=== PATIENT | female | born 1995 | race Caucasian/White ===

== ENCOUNTER 2019-11-22 06:06 | Day surgery (SDC) | payer OTHER, SELFPAY ==
[2019-11-22] VITALS (11 sets, daily range): BP systolic 110–147; BP diastolic 62–82; PULSE 59–102; RESP 11–23; TEMP 36.7–37.3; O2SAT 95–100
--- NOTE | ~2019-11-22 | CT_ITS ---
EXAMINATION: CT abdomen pelvis w con DATE: 11/22/2019 06:57 INDICATION: Right lower quadrant abdominal pain. Nausea. Diarrhea. TECHNIQUE: Computed tomography (CT) of the abdomen and pelvis was performed with 100 mL Omnipaque 350 intravenous contrast. Automated exposure control and iterative reconstruction technique were employe d. The dose-length product was 376.77 mGy-cm. COMPARISON: None. FINDINGS: The visualized portions of the lung bases are clear without pneumonia or pleural effusion. The heart size is normal. No pericardial effusion. The liver, gallbladder, spleen, pancreas, adrenal glands, and kidneys are normal. There is an intrauterine device in expected position. There is an duc endicolith in the appendix, which is fluid-filled and dilated to 9 mm, consistent with acute appendic itis. There are no pathologically enlarged lymph nodes. There is trace pelvic ascites. There are peripheral edp equipment operator aydin bilateral L5 pars defects. IMPRESSION: 1. Acute appendicitis. Reviewed, dictated and finalized at location A. IMPRESSION: 1. Acute appendicitis.
--- NOTE | 2019-11-22 06:26 | ED.ABDPAIN ---
HPI - Abdominal Pain General Chief Complaint: Abdominal Pain <Drew Brady MD - Last Filed: 11/22/19 19:15> Stated Complaint: abd pain <Drew Brady MD - Last Filed: 11/22/19 19:15> Time Seen by Provider: 11/22/19 06:26 <Drew Brady MD - Last Filed: 11/22/19 19:15> History of Present Illness HPI narrative: Severe RLQ pain since about 4 AM. Associated with nausea. Additionally reports feeling constipated, this is despite having a bowel movement this morning. The pain is worse with extending at the waist. She has never had this pain before. No prior surgeries <Drew Brady MD - Last Filed: 11/22/19 19:15> Related Data Home Medications: Home Medications Medication Instructions Recorded Confirmed No Home Medications 11/22/19 11/22/19 <Drew Brady MD - Last Filed: 11/22/19 19:15> Allergies/Adverse Reactions: Allergies Allergy/AdvReac Type Severity Reaction Status Date / Time No Known Allergies Allergy Verified 11/22/19 09:16 <Drew Brady MD - Last Filed: 11/22/19 19:15> Review of Systems Review of Systems: All systems reviewed & are unremarkable except as noted in HPI and below <Drew Brady MD - Last Filed: 11/22/19 19:15> Constitutional: Constitutional: Denies fever(s) <Drew Brady MD - Last Filed: 11/22/19 19:15> Cardiovascular: Cardiovascular: Denies chest pain <Drew Brady MD - Last Filed: 11/22/19 19:15> Respiratory: Respiratory: Denies dyspnea <Drew Brady MD - Last Filed: 11/22/19 19:15> Gastrointestinal: Gastrointestinal: Reports abdominal pain, Reports constipation, Reports diarrhea and Denies nausea <Drew Brady MD - Last Filed: 11/22/19 19:15> Neurologic: Denies dizziness <Drew Brady MD - Last Filed: 11/22/19 19:15> [facility] Past Medical History Medical History: Medical History No significant past medical history <Drew Brady MD - Last Filed: 11/22/19 19:15> Surgical History Surgical History: Surgical History No pertinent past surgical history <Drew Brady MD - Last Filed: 11/22/19 19:15> Family History Family History: Family History Mother Breast cancer Thyroid disease Sibling Thyroid disease <Drew Brady MD - Last Filed: 11/22/19 19:15> Social History Social History: Social History Social History: Designates her mother, Ca Parker, as her medical decision maker. Smoking status: Current every day smoker Tobacco type: e-cigarettes/vaping Alcohol intake: current Alcohol use details: Occasional, social alcohol use. 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 Gender identity (if verbalized by the patient): Female <Drew Brady MD - Last Filed: 11/22/19 19:15> Exam Const: General: healthy appearing, no acute distress and alert <Drew Brady MD - Last Filed: 11/22/19 19:15> Orientation/consciousness: patient oriented x3 <Drew Brady MD - Last Filed: 11/22/19 19:15> Other: mild distress. Tearful <Drew Brady MD - Last Filed: 11/22/19 19:15> HENMT: Head: normal to inspection <Drew Brady MD - Last Filed: 11/22/19 19:15> Neck: Neck: normal visual inspection and no lymphadenopathy <Drew Brady MD - Last Filed: 11/22/19 19:15> Chest: Chest palpation & inspection: no tenderness <Drew Brady MD - Last Filed: 11/22/19 19:15
[2019-11-22 06:33] LABS: Basophils Percent Auto 0.4 % (0.2-1.2); Eosinophils Absolute Auto 0.1 K/mm3 (0-0.3); Eosinophils Percent Auto 0.6 % (0-4.4); Hematocrit 41.7 % (37.0-47.0); Hemoglobin 14.5 g/dL (12.0-15.0); Immature Granulocyte Absolute 0.04 K/mm3 (0.00-0.031); Immature Granulocyte Percent A 0.4 % (0-0.5); Lymphocytes Absolute Auto 1.45 K/mm3 (0.9-3.2); Lymphocytes Percent Auto 12.7 % (18.3-44.2); Mean Corpuscular HGB Conc 34.8 g/dl (32-36); Monocytes Absolute Auto 0.9 K/mm3 (0.1-0.6); Monocytes Percent Auto 7.4 % (2.6-8.5); Neutrophils Percent Auto 78.5 % (45.5-73.1); Platelet Count Result 125 k/mm3 (150-375); Red Blood Count 4.39 M/mm3 (4.2-5.4); Red Cell Distribution Width 11.9 % (11.5-14.5); White Blood Count 11.4 K/mm3 (4.5-10.0)
[2019-11-22] MEDS: MORPHINE SULFATE 2 MG/ML INJ IV PUSH (06:37)
[2019-11-22] MEDS: ONDANSETRON INJ 4 MG/2 ML VIAL IV PUSH (06:38)
[2019-11-22 06:46] LABS: Alanine Aminotransferase 17 U/L (4-35); Albumin Level 4.7 g/dL (3.5-5.1); Alkaline Phosphatase 81 U/L (38-126); Aspartate Amino Transferase 39 U/L (14-36); Bilirubin,Total 0.6 mg/dL (0.2-1.3); Blood Urea Nitrogen 13 mg/dL (7-17); Calcium 9.3 mg/dL (8.4-10.2); Carbon Dioxide 22 mmol/L (22-30); Chloride 105 mmol/L (98-107); Estimated CRCL calculation 108 ml/min; Estimated Glomerular Filt Rate > 60; Glucose 112 mg/dL (65-105); Lipase 132 U/L (23-300); Potassium 4.3 mmol/L (3.4-5.0); Sodium 136 mmol/L (137-145)
[2019-11-22] MEDS: MORPHINE SULFATE 4 MG/ML INJ IV PUSH (07:12)
[2019-11-22 08:24] LABS: Add Urine Microscopic? YES; Appearance Urine Clear (Clear); Bilirubin Urine Negative (Negative); Blood Urine Negative (Negative); Color Urine Straw (Yellow); Glucose Urine UA Negative (Negative); Ketones Urine Trace mg/dL (Negative); Leukocyte Esterase Ur Negative LEU/UL (Negative); Nitrate Urine Negative (Negative); Protein Urine Negative (Negative); Squamous Epithelial Cell Urine Moderate /hpf (Few); Urobilinogen Urine Negative mg/dL (<2.0); WBC Urine 0-3 /hpf
[2019-11-22 08:26] LABS: Specific Grav Ur > 1.060 (1.001-1.035)
--- NOTE | 2019-11-22 08:34 | PM.IMHP ---
H&P: HPI History of Present Illness Chief complaint: abd pain Narrative: Mercedez Breen is a 24 year old female, who is otherwise healthy, the presented to the emergency department for evaluation of lower abdominal pain. She reports having a sudden onset of lower abdominal pain around 4:00 a.m. this morning. It was difficult to get comfortable in bed and she had gotten up to have a bowel movement, which was loose, without any relief in her pain. Throughout the morning, her pain continued to worsen with no alleviating factors. The pain would worsen when lying flat, standing, or walking the stairs. She also reports associated nausea, but no vomiting. Denies fever or chills. Due to the unrelenting abdominal pain, she presented to the emergency department for further evaluation. CT scan of the abdomen and pelvis showed evidence of acute appendicitis. Labs revealed a white blood cell count of 11,400. Our service was contacted by the ED physician for surgical evaluation of the possible acute appendicitis. The patient is now being seen in the emergency department. She reports her abdominal pain has now localized to the right lower quadrant since being in the ER. She also reports that the pain improved with pain medication, but is now worsening again. Denies any nausea at this time. No other complaints at this time. No previous abdominal surgeries. Last time she had any oral intake was last night before bed. Review of Systems Constitutional: Constitutional: Reports as per HPI, Denies chills, Denies excessive sweating, Denies fatigue, Denies fever(s), Denies headache(s) and Denies weakness Eyes: Eyes: Denies change in vision and Denies loss of vision ENT: Reports Normal hearing present, Denies dizziness, Denies headache(s), Denies sinus pain, Denies sinus pressure and Denies sore throat Cardiovascular: Cardiovascular: Denies chest pain, Denies syncope, Denies leg edema, Denies lightheadedness, Denies radiating jaw, neck or arm pain and Denies dyspnea Respiratory: Respiratory: Denies cough, Denies dyspnea and Denies wheezing Gastrointestinal: Gastrointestinal: Reports as per HPI, Reports no additional gastrointestinal complaints, Reports abdominal pain (RLQ), Denies bloating, Denies hematochezia, Denies tenesmus, Denies constipation, Denies dysphagia, Reports loose stools, Reports nausea and Denies vomiting Genitourinary: Genitourinary: Reports no additional female genitourinary complaints, Denies hematuria and Denies dysuria Musculoskeletal: Musculoskeletal: Denies deformity, Denies joint swelling, Denies radiating pain into limb and Denies tingling Integumentary/Breasts: Skin/Breast: Denies pruritus, Denies wounds and Denies jaundice Neurologic: Reports Normal hearing present, Denies confusion, Denies dizziness, Denies syncope, Denies headache(s), Denies loss of vision, Denies tingling, Denies tremor(s) and Denies weakness Psychiatric: Psychiatric: Denies anxiety, Denies confusion and Denies depression Endocrine: Endocrine: Denies cold intolerance, Denies excessive sweating, Denies fatigue and Denies heat intolerance Hematologic/Lymphatic: Hematologic/Lymphatic: Denies easy bleeding and Denies easy bruising Allergic/Immunologic: Allergic/Immunologic: Denies wheezing PMFSH Past Medical History Medical History No significant past medical history Surgical History Surgical History No pertinent past surgical history Family History Family History Mother Breast cancer Thyroid disease Sibling Thyroid disease Social History Social History Social History: Designates her mother, Ca Parker, as her medical decision maker. Smoking status: Current every day smoker Tobacco type: e-cigarettes/vaping Alcohol in
--- NOTE | 2019-11-22 08:58 | WPDANESEPPF ---
Anes - Initial Pre Proc Eval Procedure: Operation Date: 11/22/19 10:00 Proposed Procedures p Laparoscopic Appendectomy - Lazaro Walker MD Date/Time: 11/22/19 08:58 Surgeon: Lazaro Walker MD Pre Op Diagnosis: abd pain Patient Data Age: 24 Gender: F Height: 5 ft 4 in Weight: 59 kg Last Vital Signs Temp 36.7 C 11/22/19 06:09 Pulse 66 11/22/19 08:41 Resp 18 11/22/19 08:41 BP 113/76 11/22/19 08:41 Pulse Ox 100 11/22/19 08:41 Allergies Allergy/AdvReac Type Severity Reaction Status Date / Time No Known Allergies Allergy Verified 11/22/19 06:25 Home Medications Medication Instructions Recorded Confirmed Type No Home Medications 11/22/19 11/22/19 History Laboratory Tests 11/22/19 11/22/19 11/22/19 06:26 06:26 08:03 WBC 11.4 K/mm3 H K/mm3 (4.5-10.0) RBC 4.39 M/mm3 M/mm3 (4.2-5.4) Hgb 14.5 g/dL g/dL (12.0-15.0) Hct 41.7 % % (37.0-47.0) MCV 95.0 fl fl (80-100) MCH 33.0 pg pg (26-34) MCHC 34.8 g/dl g/dl (32-36) RDW 11.9 % % (11.5-14.5) Plt Count 125 k/mm3 L k/mm3 (150-375) MPV 13.0 fl H fl (7.4-10.4) Immature Gran % (Auto) 0.4 % % (0-0.5) Neut % (Auto) 78.5 % H % (45.5-73.1) Lymph % (Auto) 12.7 % L % (18.3-44.2) [place] % (Auto) 7.4 % % (2.6-8.5) Eos % (Auto) 0.6 % % (0-4.4) Baso % (Auto) 0.4 % % (0.2-1.2) Lymph # (Auto) 1.45 K/mm3 K/mm3 (0.9-3.2) [place] # (Auto) 0.9 K/mm3 H K/mm3 (0.1-0.6) Eos # (Auto) 0.1 K/mm3 K/mm3 (0-0.3) Baso # (Auto) 0.0 K/mm3 K/mm3 (0.0-0.1) Abs Immat Gran (auto) 0.04 K/mm3 H K/mm3 (0.00-0.031) Absolute Neuts (auto) 9.0 K/mm3 H K/mm3 (1.3-6.7) Absolute Nucleated RBC 0.0 K/mm3 K/mm3 (0.0-0.012) Nucleated RBC % 0.0 % % (0.0-0.2) Sodium 136 mmol/L L mmol/L (137-145) Potassium 4.3 mmol/L mmol/L (3.4-5.0) Chloride 105 mmol/L mmol/L (98-107) Carbon Dioxide 22 mmol/L mmol/L (22-30) BUN 13 mg/dL mg/dL (7-17) Creatinine 0.60 mg/dL L mg/dL (0.7-1.0) Estim Creat Clear Calc 108 ml/min ml/min Estimated GFR > 60 (59 - ) Glucose 112 mg/dL H mg/dL (65-105) Calcium 9.3 mg/dL mg/dL (8.4-10.2) Total Bilirubin 0.6 mg/dL mg/dL (0.2-1.3) AST 39 U/L H U/L (14-36) ALT 17 U/L U/L (4-35) Alkaline Phosphatase 81 U/L U/L (38-126) Total Protein 8.0 g/dL g/dL (6.3-8.2) Albumin 4.7 g/dL g/dL (3.5-5.1) Lipase 132 U/L U/L (23-300) Urine Color Straw (Yellow) Urine Appearance Clear (Clear) Urine pH 7.0 (5.0-9.0) Ur Specific [place] > 1.060 H (1.001-1.035) Urine Protein Negative mg/dL mg/dL (Negative) Urine Glucose (UA) Negative mg/dL mg/dL (Negative) Urine Ketones Trace mg/dL mg/dL (Negative) Ur Blood (Man) Negative (Negative) Urine Nitrate Negative (Negative) Urine Bilirubin Negative (Negative) Urine Urobilinogen Negative mg/dL mg/dL (<2.0) Leukocyte Esterase Rfl Negative KEARA/UL KEARA/UL (Negative) Urine RBC 3-5 /hpf H /hpf (0-2) Urine WBC 0-3 /hpf /hpf Ur Squamous Epith Cells Moderate /hpf H /hpf (Few) Patient hx anesthesia problems: none Family hx anesthesia problems: none PMFSH Past Medical History Medical History No significant past medical history Surgical History Surgical History No pertinent past surgical history Family History Family History Mo
[2019-11-22] MEDS: LACTATED RINGERS 1,000 ML 30 ML IV CONT ×2 (09:00→10:46)
--- NOTE | 2019-11-22 09:42 | PM.PNGS ---
Progress Note: A&P Assessment and Plan (1) Acute appendicitis: Qualifiers: Acute appendicitis type: with localized peritonitis Appendicitis abscess presence: without abscess Appendicitis gangrene presence: without gangrene Appendicitis perforation presence: without perforation Qualified Code(s): K35.30 - Acute appendicitis with localized peritonitis, without perforation or gangrene Code(s): K35.80 - Unspecified acute appendicitis Status: Acute Assessment and Plan: Will proceed with laparoscopic appendectomy today. Procedure discussed thoroughly. All questions answered. She agrees to go ahead. Subjective Subjective Date/Time Seen: 11/22/19 09:42 Healthy young woman with RLQ abdominal pain and tenderness. WBC is over 11,000. CT c/w acute appendicitis with appendicolith. Review of Systems Constitutional: Constitutional: Denies chills and Denies fever(s) Cardiovascular: Cardiovascular: Denies chest pain, Denies diaphoresis, Denies dyspnea and Denies paroxysmal nocturnal dyspnea Respiratory: Respiratory: Denies chest congestion, Denies cough and Denies dyspnea Integumentary/Breasts: Skin/Breast: Denies lesions and Denies rash Exam Const: General: comfortable and no acute distress; No confusion Orientation/consciousness: patient oriented x3 and No confusion GI: Inspection: non-distended GI Palp: Yes Soft to palpation, Yes Tenderness to palpation present (GI) (tender RLQ with guarding), No Guarding due to palpation present (GI) and No Rebound tenderness present Auscultation: normal bowel sounds Neuro: General: patient oriented x3, no focal motor deficits and No confusion Extrem: General: no calf tenderness and no edema Psych: Affect: normal affect Insight: Good insight present (Psych) Judgement: Good judgement present (Psych) Objective Data Vital Signs Vital Signs: Vital Signs - 24 hr 11/22/19 06:09 11/22/19 08:07 11/22/19 08:41 Temperature 36.7 C Pulse Rate 73 66 66 Respiratory Rate 19 17 18 Blood Pressure 127/72 115/77 113/76 Pulse Oximetry 100 97 100 11/22/19 08:54 Temperature 37.3 C Pulse Rate 72 Respiratory Rate 20 Blood Pressure 127/63 Pulse Oximetry 100 Intake/Output Intake/Output: Intake & Output 11/19/19 11/20/19 11/21/19 11/22/19 23:59 23:59 23:59 23:59 Intake Total 150 Balance 150 Meds/Results Medications: Active Medications Generic Name Dose Route Start Last Admin Trade Name Freq PRN Reason Stop Dose Admin Fentanyl Citrate 2 mcg 11/22/19 08:59 Sublimaze IV PUSH Q2M PRN Pain Sodium Chloride 1,000 mls @ 150 mls/hr 11/22/19 07:23 Normal Saline Iv IV CONT 11/22/19 14:02 .Q6H40M STA Lactated Ringer's 1,000 mls @ 30 mls/hr 11/22/19 08:10 11/22/19 09:00 Lr - Lactated Ringers Iv IV CONT 30 mls/hr .Q24H CECI Administration Lactated Ringer's 1,000 mls @ 30 mls/hr 11/22/19 09:00 Lr - Lactated Ringers Iv IV CONT .Q24H CECI Ondansetron HCl 4 mg 11/22/19 08:59 Zofran Inj IV PUSH ONCE PRN Nausea Oxycodone HCl 5 mg 11/22/19 08:59 Roxicodone Ir Tablet PO ONCE PRN Pain Radiology Results: ITS Impressions Abdomen/Pelvis CT 11/22/19 07:00 IMPRESSION: 1. Acute appendicitis. Labs Labs: Laboratory Results - last 24 hr 11/22/19 11/22/19 11/22/19 06:26 06:26 08:03 WBC 11.4 H RBC 4.39 Hgb 14.5 Hct 41.7 MCV 95.0 MCH 33.0 MCHC 34.8 RDW 11.9 Plt Count 125 L MPV 13.0 H Immature Gran % (Auto) 0.4 Neut % (Auto) 78.5 H Lymph % (Auto) 12.7 L [place] % (Auto) 7.4 Eos % (Auto) 0.6 Baso % (Auto) 0.4 Lymph # (Auto) 1.45 [place] # (Auto) 0.9 H Eos # (Auto) 0.1 Baso # (Auto) 0.0 Abs Immat Gran (auto) 0.04 H Absolute Neuts (auto) 9.0 H Absolute Nucleated RBC 0.0 Nucleated RBC % 0.0 Sodium 136 L Potassium 4.3 Chloride 105 Carbon Dioxide 22 BUN 13 Creatinine 0.6
[2019-11-22] MEDS: BUPIVACAINE/EPINEPHRINE 0.5% 30 ML VIAL 20 ML INFILTRATE (10:26)
--- NOTE | 2019-11-22 11:03 | PM.SD ---
Same Day Admit/Disch: HPI History of Present Illness Chief complaint: abd pain Narrative: Mercedez Breen is a 24 year old female with appendicitis. See history and physical exam. See operative note. [facility] Past Medical History Medical History No significant past medical history Surgical History Surgical History No pertinent past surgical history Family History Family History Mother Breast cancer Thyroid disease Sibling Thyroid disease Social History Social History Social History: Designates her mother, Ca Parker, as her medical decision maker. Smoking status: Current every day smoker Tobacco type: e-cigarettes/vaping Alcohol intake: current Alcohol use details: Occasional, social alcohol use. 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 Gender identity (if verbalized by the patient): Female Same Day Admit/Disch: Med Pre-admit Medications Home Medications Medication Instructions Recorded Confirmed Type No Home Medications 11/22/19 11/22/19 History hydrocodone-acetaminophen 1 - 2 tablet PO Q6H PRN #7 tablet 11/22/19 Rx ketorolac 10 mg PO Q6H 4 Days #16 tablet 11/22/19 Rx DS: Data Data Completed and Pending Pending studies at discharge: Pending at discharge 11/22/19 10:16 Surgical [PTH] Routine Labs on day of discharge: Labs from last 24 hours 11/22/19 11/22/19 11/22/19 08:03 06:26 06:26 WBC 11.4 H RBC 4.39 Hgb 14.5 Hct 41.7 MCV 95.0 MCH 33.0 MCHC 34.8 RDW 11.9 Plt Count 125 L MPV 13.0 H Immature Gran % (Auto) 0.4 Neut % (Auto) 78.5 H Lymph % (Auto) 12.7 L [place] % (Auto) 7.4 Eos % (Auto) 0.6 Baso % (Auto) 0.4 Lymph # (Auto) 1.45 [place] # (Auto) 0.9 H Eos # (Auto) 0.1 Baso # (Auto) 0.0 Abs Immat Gran (auto) 0.04 H Absolute Neuts (auto) 9.0 H Absolute Nucleated RBC 0.0 Nucleated RBC % 0.0 Sodium 136 L Potassium 4.3 Chloride 105 Carbon Dioxide 22 BUN 13 Creatinine 0.60 L Estim Creat Clear Calc 108 Estimated GFR > 60 Glucose 112 H Calcium 9.3 Total Bilirubin 0.6 AST 39 H ALT 17 Alkaline Phosphatase 81 Total Protein 8.0 Albumin 4.7 Lipase 132 Urine Color Straw Urine Appearance Clear Urine pH 7.0 Ur Specific [place] > 1.060 H Urine Protein Negative Urine Glucose (UA) Negative Urine Ketones Trace Ur Blood (Man) Negative Urine Nitrate Negative Urine Bilirubin Negative Urine Urobilinogen Negative Leukocyte Esterase Rfl Negative Urine RBC 3-5 H Urine WBC 0-3 Ur Squamous Epith Cells Moderate H DS: Summary Time Spent with Patient Time attestation: Total time spent providing and/or coordinating discharge services: DS: Admitting Diagnosis Admitting Diagnosis Admitting Diagnosis: Acute appendicitis with localized peritonitis, without perforation or gangrene DS: Discharge Diagnosis Discharge Diagnosis (1) Acute appendicitis: Qualifiers: Acute appendicitis type: with localized peritonitis Appendicitis abscess presence: without abscess Appendicitis gangrene presence: without gangrene Appendicitis perforation presence: without perforation Qualified Code(s): K35.30 - Acute appendicitis with localized peritonitis, without perforation or gangrene Code(s): K35.80 - Unspecified acute appendicitis Status: Acute Discharge Plan Discharge Patient Disposition
--- NOTE | 2019-11-22 11:07 | P.OP_ITS ---
Procedure Note - Detailed Date of procedure: 11/22/19 Pre-op diagnosis: abd pain acute appendicitis Post-op diagnosis: same Procedure performed: Laparoscopic appendectomy Description of procedure: The patient was taken to surgery and induced into general anesthesia. The abdomen was prepped and draped. Trocars were placed in the usual fashion using 0.5% Marcaine with epinephrine and applied Medical optical trocars. A 5 mm camera was used. The patient was placed in Trendelenburg with the right side elevated. The appendix was found and was elevated anteriorly. Dissection was carried out in the mesoappendix. The mesoappendix was dissectedand the appendiceal vessels cauterized for hemostasis. Eventually the base of the appendix was skeletonized. The appendix was ligated at its base with a Vicryl endo-loop. It was amputated just above the ligature and the mucosa of the appendiceal stump was cauterized. The appendix was immediately placed in an Endo-Catch bag and retrieved through the 10 11 left lower quadrant trocar site. We replaced the 10 11 trocar and reviewed the right lower quadrant and areas of dissection. All looked good with no evidence of bleeding or other problems. We evacuated CO2 and removed the trocar sleeves. Skin wounds were closed with subcuticular 4 O Monocryl skin suture. The wounds were dressed with Exofin surgical adhesive. The patient was awakened and taken to recovery in good condition. Sponge and needle counts were correct x2. Anesthesia: GETA and local (0.5% Marcaine with epinephrine) Surgeon: Lazaro Walker MD Roller Bearing Inspector: Jewels RIVERA Estimated blood loss (mL): 5 Drains: No Packing: No Pathology: yes (Appendix) Complications: None Condition: stable Disposition: PACU Findings: Acute non perforated appendicitis
== END 2019-11-22 13:00 | disposition home or self-care (01) ==
LOC: ANHED 07:49 → ANHSURGERY 08:41
PROVIDERS: Emergency Medicine; Emergency Provider Emergency Medicine; PCP Internal Medicine; Visit Provider Surgery
PROC: 0DTJ4ZZ Resection of Appendix, Percutaneous Endoscopic Approach (ICD-10-PCS; CPT 44970; principal; 2019-11-22 10:00)
DX: K35.30 Acute appendicitis with localized peritonitis, without perforation or gangrene (principal); F17.290 Nicotine dependence, other tobacco product, uncomplicated; F12.90 Cannabis use, unspecified, uncomplicated
CPT/HCPCS: 44970; 36415; 74177; 80053; 81001; 81025; 83690; 85025; 88304; 96365; 96367; 96375; 96376; 99285; A9270; J0131; J0330; J1100; J2250; J2270; J2405; J2543; J2704; J3010; J7120; Q9967

== ENCOUNTER 2019-12-01 09:43 | Outpatient (CLI) | payer OTHER, SELFPAY ==
[2019-12-01 10:29] LABS: Basophils Absolute Auto 0.1 K/mm3 (0.0-0.1); Basophils Percent Auto 0.8 % (0.2-1.2); Eosinophils Absolute Auto 0.1 K/mm3 (0-0.3); Eosinophils Percent Auto 1.3 % (0-4.4); Hematocrit 41.4 % (37.0-47.0); Immature Granulocyte Absolute 0.01 K/mm3 (0.00-0.031); Immature Granulocyte Percent A 0.2 % (0-0.5); Lymphocytes Absolute Auto 2.13 K/mm3 (0.9-3.2); Lymphocytes Percent Auto 34.9 % (18.3-44.2); Mean Corpuscular HGB Conc 33.8 g/dl (32-36); Mean Corpuscular Hemoglobin 32.3 pg (26-34); Mean Corpuscular Volume 95.4 fl (80-100); Monocytes Absolute Auto 0.6 K/mm3 (0.1-0.6); Monocytes Percent Auto 10.5 % (2.6-8.5); Neutrophils Absolute Auto 3.2 K/mm3 (1.3-6.7); Neutrophils Percent Auto 52.3 % (45.5-73.1); Platelet Count Result 182 k/mm3 (150-375); Red Blood Count 4.34 M/mm3 (4.2-5.4); Red Cell Distribution Width 11.9 % (11.5-14.5); White Blood Count 6.1 K/mm3 (4.5-10.0)
== END 2019-12-01 09:44 | disposition home or self-care (01) ==
LOC: ANHLAB 09:45
PROVIDERS: PCP Internal Medicine; Visit Provider Nurse Practitioner Family
DX: K35.30 Acute appendicitis with localized peritonitis, without perforation or gangrene (principal)
CPT/HCPCS: 36415; 85025

== ENCOUNTER 2020-04-29 14:41 | Emergency (ER) | payer OTHER, SELFPAY ==
[2020-04-29 14:49] VITALS: BP 126/76; PULSE 95; RESP 16; TEMP 37.1; O2SAT 99
--- NOTE | 2020-04-29 14:52 | ED.URI ---
HPI - URI/Sore Throat General Chief Complaint: Upper Respiratory Infection Stated Complaint: cold symptoms Source: patient Mode of arrival: ambulatory Limitations: no limitations History of Present Illness HPI Narrative: Patient is a 24-year-old female who presents complaining of sore throat, fever and body aches x2 days. Patient reports being tested for Covid yesterday at [facility] but does not have results. She denies taking [id number] medications for relief. She denies all other complaints at this time. MD elicited complaint: fever and sore throat Related Data Home Medications Medication Instructions Recorded Confirmed No Home Medications 04/29/20 04/29/20 Allergies Allergy/AdvReac Type Severity Reaction Status Date / Time No Known Allergies Allergy Verified 12/11/19 10:25 Review of Systems Review of Systems: Narrative: CONSTITUTIONAL: Reports fever and generalized body aches EYES: Denies visual changes, redness, or discharge. ENT: Reports sore throat CARDIOVASCULAR: Denies chest pain, palpitations, or edema. RESPIRATORY: Denies cough or dyspnea. GASTROINTESTINAL: Denies abdominal pain, nausea, vomiting, or diarrhea. GENITOURINARY: Denies dysuria or hematuria. SKIN: Denies rash or itching. MUSCULOSKELETAL: Denies back pain, joint pain, or myalgia. NEUROLOGIC: Denies headache, numbness, dizziness, or weakness. PSYCHIATRIC: Denies anxiety or depression. [facility] Past Medical History Medical History Acute tonsillitis Bronchitis Enlarged adenoids Heart murmur No significant past medical history Pneumonia Surgical History Surgical History History of laparoscopic appendectomy Hx of tonsillectomy No pertinent past surgical history S/P laparoscopic appendectomy 11/22/2019 Family History Family History Mother Breast cancer Thyroid disease Sibling Thyroid disease Social History Social History Social History: Designates her mother, Ca Parker, as her medical decision maker. 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 Gender identity (if verbalized by the patient): Female Exam Narrative: Exam Narrative: GENERAL: Well-appearing, well-nourished, and in no acute distress. HEAD: Normocephalic, atraumatic. EYES: No redness or drainage. ENT: Mucous membranes pink and moist. Nares clear. No rhinorrhea. Throat erythema no exudate normal. Uvula midline. CHEST: No respiratory distress. HEART: Regular rate and rhythm. EXTREMITIES: Normal range of motion. SKIN: Warm, dry, no rash. NEURO: No focal deficits. Alert and oriented x3. Gait steady. PSYCH: Normal affect. No signs of depression or anxiety. Course Vital Signs Vital signs: Vital Signs Temperature 37.1 C 04/29/20 14:49 Pulse Rate 95 04/29/20 14:49 Respiratory Rate 16 04/29/20 14:49 Blood Pressure 126/76 04/29/20 14:49 Pulse Oximetry 99 04/29/20 14:49 Temperature 37.1 C 04/29/20 15:04 Pulse Rate 95 04/29/20 15:04 Respiratory Rate 16 04/29/20 15:04 Blood Pressure 126/76 04/29/20 15:04 Pulse Oximetry 99 04/29/20 15:04 Reviewed MDM - URI/Sore Throat MDM Narrative Medical decision making narrative: Patient's rapid strep and influenza are negative at this time. Strep culture to be sent. Patient is still currently awaiting Covid results from [facility]. Discussed with patient the need to quarantine until all results are returned. Discussed symptomatic treatment
[2020-04-29 15:04] VITALS: BP 126/76; PULSE 95; RESP 16; TEMP 37.1; O2SAT 99
== END 2020-04-29 15:24 | disposition home or self-care (01) ==
PROVIDERS: Emergency Provider Nurse Practitioner
DX: J06.9 Acute upper respiratory infection, unspecified (principal); F17.200 Nicotine dependence, unspecified, uncomplicated; R01.1 Cardiac murmur, unspecified
CPT/HCPCS: 87081; 87804; 87880; 99213; G0463

== ENCOUNTER 2020-05-22 11:30 | Emergency (ER) | payer OTHER, SELFPAY ==
--- NOTE | 2020-05-22 11:38 | ED.GENADULT ---
HPI - General Adult General Chief complaint: Extremity Problem,Nontraumatic Stated complaint: THUMB FEELS NUMB Time Seen by Provider: 05/22/20 11:38 Source: patient Mode of arrival: ambulatory Limitations: no limitations History of Present Illness HPI narrative: 24-year-old female patient presents to the [facility] with complaints of right thumb numbness. Patient states that yesterday she had what she described as some thumb coughs onto her bilateral thumbs yesterday while doing a scene . Patient states that she had the thumb cuffs on for about an hour. Patient states that when she took them off she noticed some numbness and tingling to the right thumb. Patient states that most of the sensation has come back but still complains of a little bit of numbness to the posterior side of the right thumb. Patient states she is able to move it and not really complaining of pain. Patient denies taking anything for the numbness. Patient states she does not think that she broke it. She is just concerned about the numbness. Related Data Home Medications Medication Instructions Recorded Confirmed No Home Medications 04/29/20 04/29/20 Allergies Allergy/AdvReac Type Severity Reaction Status Date / Time No Known Allergies Allergy Verified 12/11/19 10:25 Review of Systems Review of Systems: Narrative: CONSTITUTIONAL: Denies fever, chills, or sweats. EYES: Denies visual changes, redness, or discharge. ENT: Denies rhinorrhea, congestion, sore throat, or otalgia. CARDIOVASCULAR: Denies chest pain, palpitations, or edema. RESPIRATORY: Denies cough or dyspnea. GASTROINTESTINAL: Denies abdominal pain, nausea, vomiting, or diarrhea. GENITOURINARY: Denies dysuria or hematuria. SKIN: Denies rash or itching. MUSCULOSKELETAL: Denies back pain, joint pain, or myalgia. Positive right thumb numbness since yesterday NEUROLOGIC: Denies headache, numbness, or weakness. PSYCHIATRIC: Denies anxiety or depression. [facility] Past Medical History Medical History Acute tonsillitis Bronchitis Enlarged adenoids Heart murmur No significant past medical history Pneumonia Surgical History Surgical History History of laparoscopic appendectomy Hx of tonsillectomy No pertinent past surgical history S/P laparoscopic appendectomy 11/22/2019 Family History Family History Mother Breast cancer Thyroid disease Sibling Thyroid disease Social History Social History Social History: Designates her mother, Ca Parker, as her medical decision maker. 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 Gender identity (if verbalized by the patient): Female Comments At the time of my signature I agree with nursing past medical history, surgical, social, and family history. There is no relevant family history pertinent to the presenting complaint. Exam Narrative: Exam Narrative: GENERAL: Well-appearing, well-nourished, and in no acute distress. HEAD: Normocephalic, atraumatic. EYES: PERRLA and EOMI. ENT: Nares clear, no rhinorrhea or epistaxis. Mucous membranes moist. NECK: Supple. No lymphadenopathy CHEST: Clear to auscultation. No respiratory distress. HEART: Regular rate and rhythm. No murmur heard. Normal peripheral pulses. ABDOMEN: Soft, nontender, nondistended, normal active bowel sounds. EXTREMITIES: The R hand is without obvious asymmetry or deformity when compared to the L hand. No swelling, erythema, atrophy, or o
[2020-05-22 11:43] VITALS: BP 136/80; PULSE 86; RESP 16; TEMP 36.9; O2SAT 100
== END 2020-05-22 11:50 | disposition home or self-care (01) ==
PROVIDERS: Emergency Provider Nurse Practitioner Family; PCP Internal Medicine
DX: R20.0 Anesthesia of skin (principal); R20.2 Paresthesia of skin; F17.200 Nicotine dependence, unspecified, uncomplicated; R01.1 Cardiac murmur, unspecified
CPT/HCPCS: 99211; G0463

== ENCOUNTER 2020-08-08 14:05 | Emergency (ER) | payer OTHER, SELFPAY ==
[2020-08-08 14:20] VITALS: BP 132/75; PULSE 80; RESP 16; TEMP 36.9; O2SAT 100
--- NOTE | 2020-08-08 14:21 | ED.SKABFB ---
HPI - Skin/Abscess/Foreign Bdy General Chief complaint: Skin/Abscess/Foreign Body Stated complaint: rash Time Seen by Provider: 08/08/20 14:21 Source: patient and RN notes reviewed Mode of arrival: ambulatory Limitations: no limitations History of Present Illness HPI narrative: 25-year-old female presents to the [facility] with complaints of a brown rash to the bilateral thighs for 2 weeks. reports that she was swimming in the ocean in [facility] over spring and she noted the brown rash after. Denies pain or itching. States that it just looks weird. Has tried multiple OTC treatments with no improvement states that her roommate has the same. Related Data Allergies Allergy/AdvReac Type Severity Reaction Status Date / Time No Known Allergies Allergy Verified 08/08/20 14:12 Review of Systems Review of Systems: Narrative: CONSTITUTIONAL: Denies fever, chills, or sweats. CARDIOVASCULAR: Denies chest pain, palpitations, or edema. RESPIRATORY: Denies cough or dyspnea. SKIN: reports rash without pain or itching. MUSCULOSKELETAL: Denies back pain, joint pain, or myalgia. NEUROLOGIC: Denies headache, numbness, or weakness. PSYCHIATRIC: Denies anxiety or depression. All other systems reviewed are negative, except as documented in HPI. [facility] Past Medical History Medical History Acute tonsillitis Bronchitis Enlarged adenoids Heart murmur No significant past medical history Pneumonia Surgical History Surgical History History of laparoscopic appendectomy Hx of tonsillectomy No pertinent past surgical history S/P laparoscopic appendectomy 11/22/2019 Family History Family History Mother Breast cancer Thyroid disease Sibling Thyroid disease Social History Social History Social History: Designates her mother, Ca Parker, as her medical decision maker. 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 Gender identity (if verbalized by the patient): Female Comments At the time of my signature, I reviewed and agree with the nursing past medical, surgical, social, and family history. There is no relevant family history pertinent to the patient complaint. Exam Narrative: Exam Narrative: GENERAL: This is a well-nourished, well-developed patient, in no apparent distress. HEAD: normocephalic, atraumatic. EYES: PERRL. Sclera clear/white. Vision is grossly intact. EARS: External ears normal CARDIOVASCULAR: Regular rate and rhythm without murmurs, gallops, or rubs. RESPIRATORY: Clear to auscultation. Breath sounds equal bilaterally. No wheezes, rales, or rhonchi. SKIN: warm, intact with no suspicious lesions. good texture and turgor. Brown flat papule rash noted bilateral anterior thighs. Very distinct line noted upper thigh is possibly where her shorts ended. Distal is where the rash starts. Dark brown spot noted mid medial right knee with brown line distally. Denies any palliating or itching of the area. NEURO: awake, alert, and oriented to person, place and time. There were no obvious focal neurologic abnormalities. EXTREMITIES: No joint tenderness, effusion, or edema noted. No calf tenderness. Course Vital Signs Vital signs: Vital Signs Temperature 98.5 F 08/08/20 14:20 Pulse Rate 80 08/08/20 14:20 Respiratory Rate 16 08/08/20 14:20 Blood Pressure 132/75 08/08/20 14:20 Pulse Oximetry 100 08/08/20 14:20 Temperature 98.5 F 08/08/20 14:20 Pulse Rate 80 08/08/20 14:20
== END 2020-08-08 15:10 | disposition home or self-care (01) ==
PROVIDERS: Emergency Provider Nurse Practitioner
DX: R21 Rash and other nonspecific skin eruption (principal); F17.200 Nicotine dependence, unspecified, uncomplicated; R01.1 Cardiac murmur, unspecified
CPT/HCPCS: 99213; G0463

== ENCOUNTER 2020-10-17 02:50 | Emergency (ER) | payer OTHER, SELFPAY ==
--- NOTE | ~2020-10-17 | CT_ITS ---
EXAMINATION: CT abdomen pelvis wo con DATE: 10/17/2020 04:39 INDICATION: Abdominal pain. Evaluate for kidney stone. TECHNIQUE: Computed tomography (CT) of the abdomen and pelvis was performed without intravenous contr ast. The dose-length product was 379.39 mGy-cm. Automated exposure control and iterative reconstructi on technique were employed. COMPARISON: CT dated 11/22/2019. FINDINGS: Lung bases are unremarkable. Heart size normal. No significant pleural or pericardial effus ion. There is fluid with air-fluid levels throughout the small bowel and colon, consistent with ileus versus enterocolitis. No free air or free fluid. No significant vascular abnormality. No lymphadenop athy. IUD present in the uterus. The liver, spleen, pancreas, adrenal glands and kidneys are unremarkable. Bilateral L5 spondylolysis without spondylolisthesis.. IMPRESSION: 1. Moderately distended fluid-filled small bowel and colon with air-fluid levels. Considerations incl ude enterocolitis an adynamic ileus. Reviewed, dictated and finalized at location A. IMPRESSION: 1. Moderately distended fluid-filled small bowel and colon with air-fluid level s. Considerations include enterocolitis an adynamic ileus.
[2020-10-17 02:54] VITALS: BP 128/75; PULSE 83; RESP 28; TEMP 36.1; O2SAT 100
[2020-10-17] MEDS: SODIUM CHLORIDE 0.9% IV 1,000 ML 999 ML IV CONT (03:16)
[2020-10-17] MEDS: ONDANSETRON INJ 4 MG/2 ML VIAL IV PUSH (03:16)
[2020-10-17 03:22] LABS: Basophils Absolute Auto 0.1 K/mm3 (0.0-0.1); Basophils Percent Auto 0.4 % (0.2-1.2); Eosinophils Percent Auto 0.1 % (0-4.4); Hematocrit 45.2 % (37.0-47.0); Hemoglobin 15.6 g/dL (12.0-15.0); Immature Granulocyte Absolute 0.05 K/mm3 (0.00-0.031); Immature Granulocyte Percent A 0.4 % (0-0.5); Lymphocytes Absolute Auto 1.62 K/mm3 (0.9-3.2); Lymphocytes Percent Auto 11.9 % (18.3-44.2); Mean Corpuscular HGB Conc 34.5 g/dl (32-36); Mean Corpuscular Hemoglobin 32.3 pg (26-34); Mean Corpuscular Volume 93.6 fl (80-100); Mean Platelet Volume 12.2 fl (7.4-10.4); Monocytes Absolute Auto 0.7 K/mm3 (0.1-0.6); Monocytes Percent Auto 5.4 % (2.6-8.5); Neutrophils Absolute Auto 11.2 K/mm3 (1.3-6.7); Neutrophils Percent Auto 81.8 % (45.5-73.1); Platelet Count Result 175 k/mm3 (150-375); Red Blood Count 4.83 M/mm3 (4.2-5.4); Red Cell Distribution Width 12.2 % (11.5-14.5); White Blood Count 13.6 K/mm3 (4.5-10.0)
[2020-10-17 03:34] LABS: Alanine Aminotransferase 14 U/L (4-35); Albumin Level 4.9 g/dL (3.5-5.1); Alkaline Phosphatase 61 U/L (38-126); Anion Gap 15 mmol/L (8-16); Aspartate Amino Transferase 28 U/L (14-36); Bilirubin,Total 0.8 mg/dL (0.2-1.3); Blood Urea Nitrogen 14 mg/dL (7-17); Calcium 9.7 mg/dL (8.4-10.2); Carbon Dioxide 18 mmol/L (22-30); Chloride 107 mmol/L (98-107); Estimated CRCL calculation 107 ml/min; Estimated Glomerular Filt Rate > 60; Glucose 145 mg/dL (65-105); Lipase 92 U/L (23-300); Potassium 3.5 mmol/L (3.4-5.0); Sodium 140 mmol/L (137-145)
[2020-10-17 03:46] LABS: Add Urine Microscopic? YES; Appearance Urine Cloudy (Clear); Bilirubin Urine 1+ (Negative); Blood Urine Negative (Negative); Color Urine Amber (Yellow); Glucose Urine UA Negative (Negative); Ketones Urine 1+ mg/dL (Negative); Leukocyte Esterase Ur Trace LEU/UL (Negative); Mucus Urine Heavy /lpf; Nitrate Urine Negative (Negative); Protein Urine 2+ mg/dL (Negative); Specific Grav Ur 1.027 (1.001-1.035); Squamous Epithelial Cell Urine Many /hpf (Few); WBC Urine 0-3 /hpf
--- NOTE | 2020-10-17 03:49 | PC.NURSE ---
Pt states pain comes in waves . States she does not want pain medication at this time. Rates generalized abdominal pain 5/10.
[2020-10-17] MEDS: MORPHINE SULFATE (*CRX) 4 MG/ML INJ IV PUSH (04:04)
[2020-10-17] MEDS: PROCHLORPERAZINE EDISYLATE 10 MG/2 ML VIAL IV PUSH (04:14)
[2020-10-17 04:28] VITALS: BP 110/77; PULSE 76; RESP 16; O2SAT 95
--- NOTE | 2020-10-17 04:29 | ED.GENADULT ---
HPI - General Adult General Chief complaint: Nausea/Vomiting/Diarrhea Stated complaint: vomiting x 1 hour Time Seen by Provider: 10/17/20 02:58 History of Present Illness HPI narrative: Patient with 5-year-old female presents the emergency department with chief complaint of abdominal pain nausea and vomiting. Patient reports that this evening she had sudden onset of severe nausea and vomiting is not been able to keep p.o. fluids down. Patient reports that she has pain throughout her abdomen worse in the left lower quadrant and left flank. Patient states is not improved by anything nor is it worsened by anything patient denies fever did report that she smokes marijuana earlier this evening, but this is no more than normal and is not a new supply. Related Data Allergies Allergy/AdvReac Type Severity Reaction Status Date / Time No Known Allergies Allergy Verified 10/17/20 03:11 Review of Systems Review of Systems: Narrative: A 10 system review of systems was completed on the patient and is negative except for what is stated in the HPI. Nursing and ancillary documentation was reviewed. [facility] Past Medical History Medical History Acute tonsillitis Bronchitis Enlarged adenoids Heart murmur No significant past medical history Pneumonia Surgical History Surgical History History of laparoscopic appendectomy Hx of tonsillectomy No pertinent past surgical history S/P laparoscopic appendectomy 11/22/2019 Family History Family History Mother Breast cancer Thyroid disease Sibling Thyroid disease Social History Social History Social History: Designates her mother, Ca Parker, as her medical decision maker. 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 Gender identity (if verbalized by the patient): Female Exam Narrative: Exam Narrative: GENERAL: Well-appearing, well-nourished, and in no acute distress. HEAD: Normocephalic, atraumatic. EYES: PERRLA and EOMI. ENT: Nares clear, no rhinorrhea or epistaxis. Mucous membranes moist. NECK: Supple. CHEST: Clear to auscultation. No respiratory distress. HEART: Regular rate and rhythm. No murmur heard. Normal peripheral pulses. ABDOMEN: Soft, diffusely tender to palpation, nondistended, normal active bowel sounds. EXTREMITIES: Normal range of motion. No edema. SKIN: Warm, dry, no rash. NEURO: No focal deficits. Alert and oriented x3. PSYCH: Normal mood and affect. Course Vital Signs Vital signs: Vital Signs Temperature 36.1 C L 10/17/20 02:54 Pulse Rate 83 10/17/20 02:54 Respiratory Rate 28 H 10/17/20 02:54 Blood Pressure 128/75 10/17/20 02:54 Pulse Oximetry 100 10/17/20 02:54 Temperature 36.1 C L 10/17/20 02:54 Pulse Rate 84 10/17/20 05:03 Respiratory Rate 21 H 10/17/20 05:03 Blood Pressure 128/93 H 10/17/20 05:03 Pulse Oximetry 97 10/17/20 05:03 Medical Decision Making Vital Signs Vital Signs: Vital Signs Temperature 36.1 C L 10/17/20 02:54 Pulse Rate 83 10/17/20 02:54 Respiratory Rate 28 H 10/17/20 02:54 Blood Pressure 128/75 10/17/20 02:54 Pulse Oximetry 100 10/17/20 02:54 Temperature 36.1 C L 10/17/20 02:54 Pulse Rate 84 10/17/20 05:03 Respiratory Rate 21 H 10/17/20 05:03 Blood Pressure 128/93 H 10/17/20 05:03 Pulse Oximetry 97 10/17/20 05:03 Lab Data Result diagrams: 10/17/20 03:15 10/17/20 03:15
[2020-10-17 05:03] VITALS: BP 128/93; PULSE 84; RESP 21; O2SAT 97
[2020-10-17 05:55] VITALS: BP 116/90; PULSE 75; RESP 19; O2SAT 97
== END 2020-10-17 05:55 | disposition home or self-care (01) ==
PROVIDERS: Emergency Provider Emergency Medicine
DX: K52.9 Noninfective gastroenteritis and colitis, unspecified (principal); Z87.01 Personal history of pneumonia (recurrent); F17.290 Nicotine dependence, other tobacco product, uncomplicated
CPT/HCPCS: 36415; 74176; 80053; 81001; 81025; 83690; 85025; 96361; 96374; 96375; 99284; J0780; J2270; J2405; J7030

== ENCOUNTER 2021-02-26 17:00 | Emergency (ER) | payer OTHER, SELFPAY ==
--- NOTE | 2021-02-26 17:04 | ED.URI ---
HPI - URI/Sore Throat General Chief Complaint: Upper Respiratory Infection Stated Complaint: CONGESTION/SORE THROAT Time Seen by Provider: 02/26/21 17:05 Source: patient and RN notes reviewed Mode of arrival: ambulatory Limitations: no limitations History of Present Illness HPI Narrative: Mercedez is a 25-year-old female patient who ambulated into the [facility] today with complaint of sore throat and nasal congestion since 02/23/2021. Patient states she has been taking Ibuprofen 600mg, Mucinex, and zyrtec daily. Patient denies any fever or other symptoms. Patient states she has had a tonsillectomy. Denies being around anyone else who is sick, denies any other illnesses in her household. MD elicited complaint: sore throat Related Data Allergies Allergy/AdvReac Type Severity Reaction Status Date / Time No Known Allergies Allergy Verified 10/17/20 03:11 Review of Systems Review of Systems: CONSTITUTIONAL: Denies body aches, fever, chills, or sweats. EYES: Denies visual changes, redness, or discharge. ENT: + rhinorrhea,+ congestion,+ sore throat denies otalgia. CARDIOVASCULAR: Denies chest pain, palpitations, or edema. RESPIRATORY: Denies cough or dyspnea. GASTROINTESTINAL: Denies abdominal pain, nausea, vomiting, or diarrhea. GENITOURINARY: Denies dysuria or hematuria. SKIN: Denies rash, itching, or wounds. MUSCULOSKELETAL: Denies back pain, joint pain, or myalgia. NEUROLOGIC: Denies headache, numbness, tingling, or weakness. PSYCH: Denies depression or anxiety. [facility] Past Medical History Medical History Acute tonsillitis Bronchitis Enlarged adenoids Heart murmur No significant past medical history Pneumonia Surgical History Surgical History History of laparoscopic appendectomy Hx of tonsillectomy No pertinent past surgical history S/P laparoscopic appendectomy 11/22/2019 Family History Family History Mother Breast cancer Thyroid disease Sibling Thyroid disease Social History Social History Social History: Designates her mother, Ca Parker, as her medical decision maker. Smoking status: Current every day smoker Tobacco type: e-cigarettes/vaping Alcohol intake: current Alcohol use details: Occasional, social alcohol use. 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 Gender identity (if verbalized by the patient): Female Comments At time of signature, I have reviewed and agree with nursing past medical, surgical, social and family history unless otherwise noted. Please see nursing chart for further information. There is no relevant family history pertinent to the presenting complaint Exam Narrative: GENERAL: Well-appearing, well-nourished, and in no acute distress. HEAD: Normocephalic, atraumatic. EYES: EOMI. No redness or drainage. Conjunctivae normal. ENT: Mucous membranes pink and moist. Nasal membranes pale with clear rhinorrhea. TMs normal bilaterally. Throat mildly erythemic, moderate post nasal drainage noted. Uvula midline. NECK: Normal AROM. Supple. No lymphadenopathy. CHEST: No respiratory distress. Clear to auscultation. MUSCULOSKELETAL: No bony tenderness. EXTREMITIES: Normal range of motion. No edema. SKIN: Warm, dry, no rash. Capillary refill normal. Normal skin turgor. NEURO: No focal deficits. Alert and oriented x3. Gait steady. PSYCH: Normal affect. No signs of depression or anxiety. Course Vital Signs Vital signs: Reviewed. Pt has been instructed to follow up with her PCP regarding her elevated blood pressure tod
[2021-02-26 17:05] VITALS: BP 133/76; PULSE 102; RESP 16; TEMP 36.9; O2SAT 100
== END 2021-02-26 17:23 | disposition home or self-care (01) ==
PROVIDERS: Emergency Provider Nurse Practitioner Family
DX: J02.9 Acute pharyngitis, unspecified (principal); F17.200 Nicotine dependence, unspecified, uncomplicated; R01.1 Cardiac murmur, unspecified
CPT/HCPCS: 87081; 87880; 99213; G0463

== ENCOUNTER 2022-01-17 15:25 | Emergency (ER) | payer OTHER, SELFPAY ==
--- NOTE | 2022-01-17 15:31 | ED.SKABFB ---
HPI - Skin/Abscess/Foreign Bdy General Chief complaint: Skin/Abscess/Foreign Body Stated complaint: RASH Time Seen by Provider: 01/17/22 15:31 Source: patient Mode of arrival: ambulatory Limitations: no limitations History of Present Illness HPI narrative: 26 y/o female presented for c/o rash to the back of left leg for about 4 days. Endorses camping prior to the rash and thinks it is poison mayur spreading to the other leg. Using Benadryl cream without significant relief. Lesions are itchy, nonpainful, not draining. Denies other exposures or changes to soap, lotion, detergent etc. Denies lip, tongue, throat swelling or itching, shortness of breath or wheezing. Related Data Allergies Allergy/AdvReac Type Severity Reaction Status Date / Time No Known Allergies Allergy Verified 10/17/20 03:11 Review of Systems Review of Systems: CONSTITUTIONAL: Denies body aches, fever, chills, or sweats. EYES: Denies visual changes, redness, or discharge. ENT: Denies rhinorrhea, congestion CARDIOVASCULAR: Denies chest pain, palpitations, or edema. RESPIRATORY: Denies cough or dyspnea. GASTROINTESTINAL: Denies abdominal pain, nausea, vomiting, or diarrhea. SKIN: reports rash MUSCULOSKELETAL: Denies back pain, joint pain, or myalgia. NEUROLOGIC: Denies headache, numbness, tingling, or weakness. [facility] Past Medical History Medical History Acute tonsillitis Bronchitis Enlarged adenoids Heart murmur No significant past medical history Pneumonia Surgical History Surgical History History of laparoscopic appendectomy Hx of tonsillectomy No pertinent past surgical history S/P laparoscopic appendectomy 11/22/2019 Family History Family History Mother Breast cancer Thyroid disease Sibling Thyroid disease Social History Social History Social History: Designates her mother, Ca Parker, as her medical decision maker. Smoking status: Current every day smoker Tobacco type: e-cigarettes/vaping Alcohol intake: current Alcohol use details: Occasional, social alcohol use. 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 Gender identity (if verbalized by the patient): Female Comments At time of signature, I have reviewed and agree with nursing past medical, surgical, social and family history unless otherwise noted. Please see nursing chart for further information. There is no relevant family history pertinent to the presenting complaint Exam Narrative: GENERAL: Well-appearing HEAD: Normocephalic, atraumatic. EYES: conjunctivae clear, and EOMI. ENT: Mucous membranes moist. Oropharynx without edema, erythema or lesions. NECK: Supple. No lymphadenopathy CHEST: Clear to auscultation. HEART: Regular rate and rhythm. SKIN: Warm, dry. Approx 4cm irregular patch of erythematous vesicles to posterior left lower leg c/w contact dermatitis. Few scattered lesions up the leg to thigh and right leg. No active drainage, nontender. NEURO: Alert and oriented x3. Course Course Emergency Course: Patient is aware of diagnosis, understands and agrees to treatment plan. Anticipatory guidance given. Patient agrees to follow-up as directed and is aware of reasons to seek care at the emergency department. Portions of this record may have been created with voice recognition software Level [facility] Care: [facility] Visit Vital Signs Vital signs: Reviewed MDM - Skin/Abscess/Foreign Bdy MDM Narrative Medical decision making narrative: Advised supportive measures and signs/symptoms to go to the ER. Pt is appro
[2022-01-17 15:33] VITALS: BP 146/86; PULSE 84; RESP 16; TEMP 37.2; O2SAT 100
== END 2022-01-17 15:46 | disposition home or self-care (01) ==
LOC: EXPGOSH 15:39
PROVIDERS: Emergency Provider Nurse Practitioner Family
DX: L25.9 Unspecified contact dermatitis, unspecified cause (principal); F17.290 Nicotine dependence, other tobacco product, uncomplicated
CPT/HCPCS: 99213; G0463

== ENCOUNTER 2022-11-11 09:21 | Outpatient (CLI) | payer OTHER, SELFPAY ==
[2022-11-11 15:58] LABS: Kit Draw Collected
== END 2022-11-11 09:22 | disposition home or self-care (01) ==
LOC: ANHGOSHLAB 09:22
PROVIDERS: PCP Nurse Practitioner Family; Visit Provider Nurse Practitioner Family
DX: Z13.21 Encounter for screening for nutritional disorder (principal); L50.9 Urticaria, unspecified
CPT/HCPCS: 36415

== ENCOUNTER 2023-03-15 00:19 | Day surgery (SDC) | payer OTHER, SELFPAY ==
[2023-02-24 10:03] VITALS: BMI 27.4
--- NOTE | 2023-02-24 10:09 | PC.NURSE ---
Report to the Outpatient Waiting Room, entrance under the green pavilion located off [facility], at time 0830 on date 03/01/23. Planned Procedure Time: 1030. Time changes happen often and if your time is changed the preop area will call you the afternoon before. - You and your visitor will be asked to self-screen and do not enter if you have any COVID symptoms. - A mask is optional within the hospital at this time. Patients may have clear liquids (water, carbonated beverages, clear teas, apple juice) until 3 hours prior to surgery with a maximum of 20 ounces. - No food from midnight until time of surgery Take the following medications with a SIP of water the morning of surgery: BUSPIRONE IF NEEDED DO NOT STOP ANY OF YOUR OTHER PRESCRIPTION MEDICATIONS PRIOR TO SURGERY ?EXCEPT THE FOLLOWING Medications to discontinue per physician: VITAMINS/SUPPLEMENTS Date to take last dose: 02/25/23 Please no make-up, nail thai, hairspray, perfume, deodorant, or body powder the day of surgery. No jewelry (including any body piercings) or valuables the day of surgery, leave them at home. Please take a shower or bath the night before, or the morning of, surgery with an antibacterial soap. Wear comfortable, loose fitting clothing. - Jewelry must be removed prior to entering the operating room. Rings and piercings that are not removed may be cut off. - The hospital will not accept responsibility for valuables. - Please leave all valuables, including medications, at home the day of surgery. If you are going home after surgery, a licensed lyft driver must drive you home. - NO public transportation without another adult if you receive anesthesia. - We recommend that an adult stay with you for 24 hours following discharge. - We also recommend that you do not drive, make important decision, drink alcoholic beverages, or take any drugs that were not prescribed by your health care provider for at least 24 hours after your discharge time. Follow any additional instructions given to you from your surgeon. If you or anyone in your household have experienced Covid symptoms in the past week, please notify your surgeon or the nurse liaison at the phone number below for possible testing. Telephone instructions given to PT - AAV DURAN and asked if any additional questions and then verbalized understanding. Patient advised to call surgeon office or pre surgery nurse liaison [phone] if any additional questions.
--- NOTE | 2023-03-01 07:28 | WPDHPUPDATE1 ---
History and Physical Update Update Date/Time: 03/01/23 07:28 History and Physical has been reviewed, including an updated exam of the patient. There are NO changes in the patient's condition. Risks, benefits, and alternatives have been discussed and questions answered. Patient agrees to proceed with hysteroscopic IUD removal
--- NOTE | 2023-03-09 10:09 | PC.NURSE ---
PT DENIES ANY CHANGE IN HEALTH OR MEDICATION SINCE HER PRIOR INTERVIEW. NEW INSSTRUCTIONS GIVEN, PT DENIES ANY QUESTIONS.
--- NOTE | 2023-03-09 10:10 | PC.NURSE ---
Report to the Outpatient Waiting Room, entrance under the green pavilion located off [facility], at time 1200_ on date _03/15/23_. Planned Procedure Time: _1400_. Time changes happen often and if your time is changed the preop area will call you the afternoon before. - You and your visitor will be asked to self-screen and do not enter if you have any COVID symptoms. - A mask is optional within the hospital at this time. Patients may have clear liquids (water, carbonated beverages, clear teas, apple juice) until 3 hours prior to surgery with a maximum of 20 ounces. - No food from midnight until time of surgery - Infants may have breast milk until 4 hours before surgery, formula 6 hours prior to surgery. - Children will be allowed to drink immediately following surgery. If applicable, please bring a bottle or sippy cup to assist with drinking. Juice, water, soda, and popsicles are readily available. For infants on formula, please bring formula the day of surgery. Pacifiers are allowed. Take the following medications with a SIP of water the morning of surgery: _BUSPIRON IF NEEDED DO NOT STOP ANY OF YOUR OTHER PRESCRIPTION MEDICATIONS PRIOR TO SURGERY ?EXCEPT THE FOLLOWING Medications to discontinue per physician ____VITAMINS/SUPPLIMENTS Date to take last dose___03/11/23 Please no make-up, nail armenian, hairspray, perfume, deodorant, or body powder the day of surgery. No jewelry (including any body piercings) or valuables the day of surgery, leave them at home. Please take a shower or bath the night before, or the morning of, surgery with an antibacterial soap. Wear comfortable, loose fitting clothing. Children are encouraged to wear pajamas. - Jewelry must be removed prior to entering the operating room. Rings and piercings that are not removed may be cut off. - The hospital will not accept responsibility for valuables. - Please leave all valuables, including medications, at home the day of surgery. If you are going home after surgery, a licensed hook up driver must drive you home. - NO public transportation without another adult if you receive anesthesia. - We recommend that an adult stay with you for 24 hours following discharge. - We also recommend that you do not drive, make important decision, drink alcoholic beverages, or take any drugs that were not prescribed by your health care provider for at least 24 hours after your discharge time. For Pediatric surgeries, we recommend two adults accompany the child home. Follow any additional instructions given to you from your surgeon. If you or anyone in your household have experienced Covid symptoms in the past week, please notify your surgeon or the nurse liaison at the phone number below for possible testing. Telephone instructions given to _PATIENT_and asked if any additional questions and then verbalized understanding. Patient advised to call surgeon office or pre surgery nurse liaison [phone] if any additional questions.
[2023-03-15] MEDS: ACETAMINOPHEN 500 MG TABLET 1000 MG PO (10:10)
--- NOTE | 2023-03-15 10:23 | WPDHPUPDATE1 ---
History and Physical Update Update Date/Time: 03/15/23 10:23 History and Physical has been reviewed, including an updated exam of the patient. There are NO changes in the patient's condition. Risks, benefits, and alternatives have been discussed and questions answered. Patient agrees to proceed with hysteroscopic IUD removal..
--- NOTE | 2023-03-15 10:37 | WPDANESEPPF ---
Anes - Initial Pre Proc Eval Procedure: Operation Date: 03/15/23 14:00 Proposed Procedures p Hysteroscopy with Intrauterine Device Removal - Teri Wilson MD Date/Time: 03/15/23 10:37 Surgeon: Teri Wilson MD Pre Op Diagnosis: Retained IUD Patient Data Age: 27 Gender: F Height: 1.63 m Weight: 72.6 kg Allergies Allergy/AdvReac Type Severity Reaction Status Date / Time No Known Allergies Allergy Verified 02/24/23 10:02 Home Medications Medication Instructions Recorded Confirmed Type buspirone 10 mg tablet 5 mg PO BID 30 days #30 tabs 09/16/22 02/24/23 Rx melatonin 10 mg tablet 10 mg PO HS PRN Sleep 02/24/23 02/24/23 History norelgestromin 150 mcg-e.estradiol 1 patch transdermal Q7D #12 ea 03/15/23 Rx 35 mcg/24 hr weekly transderm patch (Xulane) Patient hx anesthesia problems: none Family hx anesthesia problems: none Results Review: All pre-operative results and documents have been reviewed as part of the pre-operative evaluation. [facility] Past Medical History Medical History Abnormal cells of cervix Acute hemorrhoid Acute tonsillitis Anxiety Bronchitis Enlarged adenoids Heart murmur Hives Hx LEEP (loop electrosurgical excision procedure), cervix, No significant past medical history Pneumonia Surgical History Surgical History H/O colposcopy with cervical biopsy History of laparoscopic appendectomy Hx of tonsillectomy No pertinent past surgical history S/P laparoscopic appendectomy 11/22/2019 Family History Family History Mother Breast cancer Thyroid disease Sibling Thyroid disease Social History Social History (Updated 02/22/23 @ 08:23 by Shira Lau MA) Social History: Designates her mother, Ca Parker, as her medical decision maker. Smoking status: Current every day smoker Tobacco type: e-cigarettes/vaping Second hand tobacco smoke exposure: No Alcohol intake: current Drinks per week: 2 Alcohol use details: 2 Substance use: current Substance use type: marijuana Last use: last night Lack of Transportation: No Lack of Food: Never True Current Housing: I Have Housing Concerned About Future Housing: No Difficulty Paying Gas/Electric Bills: No Difficulty Paying for Meds: No Currently Unemployed: No Education: Bachelor's Degree Difficulty w/ Childcare or Family Care: No Living arrangements: with family Additional living arrangements comments: Lives with mother Occupation/Education: occupation 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[employer] Gender identity (if verbalized by the patient): Female Sexual Orientation (if Verbalized by the Patient): Straight or Heterosexual Spiritual care concerns: No Anes - Eval Final PreProcedure Day of Procedure 03/15/23 10:37 Patient weight: normal Heart: regular rate and rhythm Lungs: clear to auscultation Airway: Mallampati scale class II Neurological: alert and oriented Last oral intake: >/= 8 hours ASA classification: II Emergent: no Anesthetic plan: proceed Anesthesia type and monitoring: general GIVS and standard monitoring Results Review: All pre-operative results and documents have been reviewed as part of the pre-operative evaluation. Informed Consent: The patient's anesthetic plan and its attendant risks and benefits were discussed with the patient/family/POA. Questions were solicited and answers provided to the satisfaction of the patient/family/POA.
[2023-03-15 10:38] VITALS: BP 128/82; PULSE 75; RESP 14; TEMP 36.8; O2SAT 100
[2023-03-15] MEDS: LACTATED RINGERS 1,000 ML 30 ML IV CONT (10:51)
--- NOTE | 2023-03-15 12:31 | SUR.OPER ---
800 ML IN 750 ML OUT
--- NOTE | 2023-03-15 12:34 | W.PM.PROC2 ---
Procedure Note - Detailed Date of Procedure 03/15/23 Pre-op Diagnosis Retained IUD Post-op Diagnosis Same Procedure Performed Hysteroscopic IUD removal Surgeon Teri Wislon MD Anesthesia MAC Findings normal cervix; no strings visualized. IUD in the correct location (strings cut very short). IUD removed w/o issue (in whole and showed to OR staff and then discarded). Normal uterine cavity with bilateral tubal ostia visualized. Good hemostasis at end of case. Description of Procedure Mercedez was taken to the operating room where she was placed under sedation without complications. She was then prepped and draped in the usual sterile fashion in the dorsal lithotomy position with her legs in low Abrahan stirrups. A time-out was performed and no perioperative antibiotics were indicated. A bivalve speculum was placed within the vagina where the cervix was easily identified. The anterior lip of the cervix was grasped with a single-tooth tenaculum. The cervix was then serially dilated to allow for the hysteroscope. The hysteroscope was advanced into the uterine cavity with the above findings noted. Using hysteroscopic alligator forceps the IUD was grasped and removed without complications. The hysteroscope was once again advanced into the uterine cavity where it was noted to be normal. Good hemostasis was noted. All instruments were removed from the vagina. Sponge, lap, instrument, and needle counts were correct at the end of the procedure. Patient was awoken from anesthesia and taken to recovery with plans of same-day discharge home. Estimated Blood Loss 3 IV Fluids 800 Pathology None sent Complications No immediate complications Condition Stable Disposition Same day [facility] Billing Surgery - Charge Forward: Surgery Billing
[2023-03-15 12:37] VITALS: BP 129/108; PULSE 75; RESP 16; O2SAT 98
[2023-03-15] MEDS: oxyCODONE HCL (*CRX) 5 MG TAB IR PO (12:49)
[2023-03-15 13:10] VITALS: BP 114/71; PULSE 75; RESP 16
[2023-03-15 13:20] VITALS: BP 106/83; PULSE 71; RESP 16
== END 2023-03-15 13:25 | disposition home or self-care (01) ==
PROVIDERS: PCP Nurse Practitioner Family; Visit Provider Obstetrics & Gynecology
PROC: 0U5B8ZZ Destruction of Endometrium, Via Natural or Artificial Opening Endoscopic (ICD-10-PCS; CPT 58563; principal; 2023-03-15 14:00)
DX: T83.32XA Displacement of intrauterine contraceptive device, initial encounter (principal); Y84.8 Other medical procedures as the cause of abnormal reaction of the patient, or of later complication, without mention of misadventure at the time of the procedure; F17.290 Nicotine dependence, other tobacco product, uncomplicated; F12.90 Cannabis use, unspecified, uncomplicated
CPT/HCPCS: 58579; A9270; J2250; J2704; J3010; J7120

== ENCOUNTER 2023-04-10 18:36 | Emergency (ER) | payer OTHER, SELFPAY ==
--- NOTE | ~2023-04-10 | CT_ITS ---
EXAMINATION: CT abdomen pelvis w con INDICATION: Abdominal pain TECHNIQUE: Computed tomographic images of the abdomen and pelvis were obtained after the administrati on of 100 cc of Omnipaque 350 intravenous contrast. The dose-length product (DLP) was 433.92 mGy-cm. Automated exposure control and iterative reconstruction technique were employed. COMPARISON: 10/17/2020 FINDINGS: Minimal dependent atelectasis is present in the lung bases. The heart size is normal. The l iver, spleen, pancreas, gallbladder, and adrenal glands are normal. The kidneys are unremarkable. No pathologically enlarged abdominal or pelvic lymph nodes are identified. No free intraperitoneal gas o r evidence of bowel obstruction. IMPRESSION: 1. No CT correlate for the patient's symptoms. Reviewed, dictated and finalized at location F. DING MOVER
[2023-04-10 18:45] VITALS: BP 128/81; PULSE 66; RESP 18; TEMP 36.8; O2SAT 100
[2023-04-10 21:00] VITALS: BP 123/74; PULSE 100; RESP 14; O2SAT 97
[2023-04-10 21:17] LABS: Basophils Percent Auto 0.3 % (0.2-1.2); Hemoglobin 15.2 g/dL (12.0-15.0); Immature Granulocyte Absolute 0.05 K/mm3 (0.00-0.031); Immature Granulocyte Percent A 0.3 % (0-0.5); Lymphocytes Absolute Auto 0.44 K/mm3 (0.9-3.2); Mean Corpuscular HGB Conc 34.5 g/dl (32-36); Mean Corpuscular Hemoglobin 31.6 pg (26-34); Mean Corpuscular Volume 91.5 fl (80-100); Mean Platelet Volume 12.1 fl (7.4-10.4); Monocytes Absolute Auto 0.4 K/mm3 (0.1-0.6); Monocytes Percent Auto 2.6 % (2.6-8.5); Neutrophils Absolute Auto 13.8 K/mm3 (1.3-6.7); Neutrophils Percent Auto 93.8 % (45.5-73.1); Platelet Count Result 180 k/mm3 (150-375); Red Blood Count 4.81 M/mm3 (4.2-5.4); Red Cell Distribution Width 11.8 % (11.5-14.5); White Blood Count 14.7 K/mm3 (4.5-10.0)
[2023-04-10 21:26] LABS: Alanine Aminotransferase 19 U/L (6-35); Albumin Level 5.1 g/dL (3.5-5.1); Alkaline Phosphatase 45 U/L (38-126); Anion Gap 13 mmol/L (8-16); Aspartate Amino Transferase 31 U/L (14-36); Blood Urea Nitrogen 13 mg/dL (7-17); Calcium 9.7 mg/dL (8.4-10.2); Carbon Dioxide 20 mmol/L (22-30); Chloride 107 mmol/L (98-107); Estimated CRCL calculation 144 ml/min; Estimated Glomerular Filt Rate > 60; Glucose 119 mg/dL (65-110); Lipase 32 U/L (23-300); Potassium 3.7 mmol/L (3.4-5.0); Sodium 140 mmol/L (137-145)
[2023-04-10] MEDS: SODIUM CHLORIDE 0.9% IV 1,000 ML 999 ML IV CONT ×2 (23:20)
[2023-04-10] MEDS: ONDANSETRON INJ 4 MG/2 ML VIAL IV PUSH (23:21)
[2023-04-10] MEDS: FAMOTIDINE 20 MG/2 ML VIAL IV PUSH (23:21)
[2023-04-10 23:30] VITALS: BP 120/68; PULSE 69; RESP 14; O2SAT 100
[2023-04-11 00:10] LABS: Influenza A QL RT-PCR Negative (Negative); Influenza B QL RT-PCR Negative (Negative); RSV RNA, RT-PCR Negative (Negative); SARS-CoV-2 RNA PCR Negative (Negative)
[2023-04-11] MEDS: ACETAMINOPHEN 500 MG TABLET 1000 MG PO (00:17)
--- NOTE | 2023-04-11 00:21 | ED.NAVMDI ---
HPI - Nausea/Vomiting/Diarrhea General Chief complaint: Nausea/Vomiting/Diarrhea Stated complaint: NV Time Seen by Provider: 04/10/23 21:05 Source: patient Mode of arrival: ambulatory Limitations: no limitations History of Present Illness HPI Narrative: Patient is a 27-year-old female presents ED with report of nausea, vomiting, diarrhea. Patient reports she developed symptoms around 7:00 a.m. this morning. She has been unable to keep down any food or drink since then, reporting persistent vomiting. She also reported having several episodes of diarrhea this morning, but states this resolved around 4:00 p.m. She denies any family members with similar symptoms. Denies any bad food exposure. Reports with upper abdominal discomfort, intermittent discomfort throughout lower abdomen. Denies fevers, denies rectal bleeding, melena, cough/cold symptoms. Related Data Home Medications Medication Instructions Recorded Confirmed melatonin 10 mg tablet 10 mg PO HS PRN Sleep 02/24/23 03/15/23 Allergies Allergy/AdvReac Type Severity Reaction Status Date / Time No Known Allergies Allergy Verified 04/10/23 22:21 Review of Systems Review of Systems: CONSTITUTIONAL: Denies fever, chills, or sweats. CARDIOVASCULAR: Denies chest pain. RESPIRATORY: Denies dyspnea. GASTROINTESTINAL: See HPI. GENITOURINARY: Denies dysuria or hematuria. MUSCULOSKELETAL: Denies back pain, joint pain, or myalgia. All systems reviewed & are unremarkable except as noted in HPI and below PMFSH Past Medical History Medical History Abnormal cells of cervix Acute hemorrhoid Acute tonsillitis Anxiety Bronchitis Enlarged adenoids Heart murmur Hives No significant past medical history Pneumonia Surgical History Surgical History H/O colposcopy with cervical biopsy H/O LEEP History of gynecologic surgery 03/15/2022 - Hysteroscopic IUD removal History of laparoscopic appendectomy Hx of tonsillectomy No pertinent past surgical history S/P laparoscopic appendectomy 11/22/2019 Family History Family History Mother Breast cancer Thyroid disease Sibling Thyroid disease Social History Social History Social History: Designates her mother, Ca Parker, as her medical decision maker. Smoking status: Current every day smoker Tobacco type: e-cigarettes/vaping Second hand tobacco smoke exposure: No Alcohol intake: current Drinks per week: 2 Alcohol use details: 2 Substance use: current Substance use type: marijuana Last use: last night Lack of Transportation: No Lack of Food: Never True Current Housing: I Have Housing Concerned About Future Housing: No Difficulty Paying Gas/Electric Bills: No Difficulty Paying for Meds: No Currently Unemployed: No Education: Bachelor's Degree Difficulty w/ Childcare or Family Care: No Living arrangements: with family Additional living arrangements comments: Lives with mother Occupation/Education: occupation 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 HEAD: Normocephalic, atraumatic. NECK: Supple. No adenopathy, no masses. RESPIRATORY: Airway patent, respirations nonlabored. Clear to auscultation bilaterally, no rales, rhonchi, wheezing. CARDIOVASCULAR: Regular rate and rhythm without murmurs, rubs, or gallops. Radial pulses 2+ and equal bilaterally. ABDOMINAL: Soft, mild tenderness throu
[2023-04-11 00:42] LABS: Appearance Urine Cloudy (Clear); Bacteria Urine 1+ /hpf; Bilirubin Urine Negative (Negative); Blood Urine Negative (Negative); Color Urine Yellow (Yellow); Glucose Urine UA Negative (Negative); Ketones Urine 4+ mg/dL (Negative); Leukocyte Esterase Ur Negative LEU/UL (Negative); Nitrate Urine Negative (Negative); Non Pathogenic Casts 0-2; Protein Urine Trace mg/dL (Negative); Specific Grav Ur 1.029 (1.001-1.035); Squamous Epithelial Cell Urine Moderate /hpf (Few); Urobilinogen Urine 0.2 mg/dL (<2.0); WBC Urine 0-5 /hpf; pH Urine 5.5 (5.0-9.0)
[2023-04-11 00:50] LABS: Add Urine Microscopic? YES
[2023-04-11 01:30] VITALS: BP 115/69; PULSE 75; RESP 19; O2SAT 99
[2023-04-11 03:28] VITALS: BP 105/60; PULSE 75; RESP 14; O2SAT 99
[2023-04-11] MEDS: METOCLOPRAMIDE HCL INJ 10 MG/2 ML VIAL IV PUSH (03:40)
== END 2023-04-11 04:20 | disposition left against medical advice (07) ==
PROVIDERS: Emergency Provider Physician Assistant; PCP Nurse Practitioner Family
DX: K52.9 Noninfective gastroenteritis and colitis, unspecified (principal); F17.290 Nicotine dependence, other tobacco product, uncomplicated; Z20.822 Contact with and (suspected) exposure to COVID-19
CPT/HCPCS: 36415; 74177; 80053; 81001; 81025; 83690; 85025; 87637; 96361; 96374; 96375; 99284; A9270; J2405; J2765; J7030; Q9967

== ENCOUNTER 2023-05-14 12:55 | Outpatient (CLI) | payer OTHER, SELFPAY ==
--- NOTE | ~2023-05-14 | CT_ITS ---
EXAMINATION: CT brain wo con DATE: 05/14/2023 13:09 INDICATION: Persistent migraine or. Constant headache and dizziness for 5 days. Year and jaw pain. TECHNIQUE: Computed tomography (CT) of the head was performed without intravenous contrast. The mA wa s adjusted according to patient size. Iterative reconstruction technique was employed. Exam dose: 64 5.69 mGy-cm total exam DLP. COMPARISON: None FINDINGS: No intracranial mass lesion or hemorrhage or cerebrovascular accident. No midline shift or mass effect. Normal ventricular size. Normal butler-white matter differentiation. No subdural or epidur al hematoma. No fracture or bone destruction of the cranial vault. The mastoid air cells and included paranasal sinuses are normal. IMPRESSION: Negative Reviewed, dictated and finalized at Location A. Reviewed, dictated and finalized at location B. TECHNICIAN IMPRESSION: Negative
== END 2023-05-14 12:56 ==
LOC: GOSHIMG 12:57
PROVIDERS: PCP Nurse Practitioner Family; Visit Provider Nurse Practitioner Family
DX: G43.519 Persistent migraine aura without cerebral infarction, intractable, without status migrainosus (principal)
CPT/HCPCS: 70450

== ENCOUNTER 2023-05-15 12:33 | Outpatient (CLI) | payer OTHER, SELFPAY ==
[2023-05-15 12:56] LABS: Alanine Aminotransferase 13 U/L (6-35); Albumin Level 4.5 g/dL (3.5-5.1); Alkaline Phosphatase 44 U/L (38-126); Anion Gap 13 mmol/L (8-16); Aspartate Amino Transferase 21 U/L (14-36); Bilirubin,Total 1.1 mg/dL (0.2-1.3); Blood Urea Nitrogen 12 mg/dL (7-17); Calcium 9.1 mg/dL (8.4-10.2); Carbon Dioxide 24 mmol/L (22-30); Chloride 101 mmol/L (98-107); Estimated Glomerular Filt Rate > 60; Glucose 92 mg/dL (65-110); Magnesium 1.8 mg/dL (1.6-2.3); Potassium 3.6 mmol/L (3.4-5.0); Sodium 138 mmol/L (137-145)
[2023-05-19 06:15] LABS: Progesterone 0.3 ng/mL (***)
[2023-05-19 18:46] LABS: Estrogen 54 pg/mL
== END 2023-05-15 12:34 | disposition home or self-care (01) ==
LOC: ANHLAB 12:34
PROVIDERS: PCP Nurse Practitioner Family; Visit Provider Nurse Practitioner Family
DX: Z00.00 Encounter for general adult medical examination without abnormal findings (principal); N92.6 Irregular menstruation, unspecified; G43.501 Persistent migraine aura without cerebral infarction, not intractable, with status migrainosus; G43.519 Persistent migraine aura without cerebral infarction, intractable, without status migrainosus
CPT/HCPCS: 36415; 80053; 82672; 83735; 84144

== ENCOUNTER 2024-03-17 10:12 | Emergency (ER) | payer OTHER, SELFPAY ==
--- NOTE | ~2024-03-17 | XR_ITS ---
EXAMINATION: XR chest 2V DATE: 03/17/2024 11:31 INDICATION: Chest discomfort. Cough. TECHNIQUE: Frontal and lateral views of the chest were obtained. COMPARISON: Chest 2 views 03/08/2009, CT abdomen and pelvis 04/11/2023 FINDINGS: There is no pneumonia, pleural effusion, or pneumothorax. The heart size is normal. IMPRESSION: 1. No acute cardiopulmonary disease. Reviewed, dictated and finalized at location A. AGE BATTERY INSPECTOR AND TESTER
[2024-03-17 10:52] VITALS: BP 115/83; PULSE 66; RESP 16; TEMP 37.5; O2SAT 100
--- NOTE | 2024-03-17 11:13 | ED.URI ---
HPI - URI/Sore Throat General Chief Complaint: Upper Respiratory Infection Stated Complaint: Chest Pain Time Seen by Provider: 03/17/24 11:05 Source: patient, RN notes reviewed and old records reviewed Mode of arrival: ambulatory Limitations: no limitations History of Present Illness HPI Narrative: 28 year old female who presents to [facility] care with complaints cough, head congestion,fevers, headache,body aches for the past 5 days. Patient reports that she started last night with pain across her lower anterior rib area described as intermittent tightness and pressure. Patient reports that she has coughed since Wednesday and had some hard sneezes also. Patient reports that she has been taking Mucinex and also Aleve for her symptoms. Patient reports no shortness of breath, no tachypnea noted or retractions SAO2 100% on room air. Patient reports that she did do a COVID home test which was negative. MD elicited complaint: fever, cough, rhinorrhea, nasal congestion and other (pain in anterior ribs) Onset (ago): day(s) (5) Severity: moderate Able to tolerate fluids by mouth: Yes Treatments prior to arrival: other (Mucinex and Aleve) Related Data Home Medications Medication Instructions Recorded Confirmed melatonin 10 mg tablet 10 mg PO HS PRN Sleep 02/24/23 03/17/24 Allergies Allergy/AdvReac Type Severity Reaction Status Date / Time No Known Allergies Allergy Verified 03/17/24 10:48 Review of Systems Review of Systems: CONSTITUTIONAL: Reports malaise, chills, sweats, or fever. EYES: Denies visual changes, redness, or discharge. ENT: Reports rhinorrhea, congestion,no sinus pain, no otalgia and some sore throat. CARDIOVASCULAR: Denies chest pain, palpitations, or edema. reports pain across lower anterior rib area intermittent tightness and some pressure non radiating RESPIRATORY: Reports cough.? Denies dyspnea. GASTROINTESTINAL: Denies abdominal pain, nausea, vomiting, diarrhea SKIN: Denies rash or itching. MUSCULOSKELETAL: Reports myalgia. NEUROLOGIC: Denies headache. All systems reviewed & are unremarkable except as noted in HPI and below PMFSH Past Medical History Medical History Abnormal cells of cervix Acute hemorrhoid Acute tonsillitis Anxiety Bronchitis Enlarged adenoids Heart murmur Hives Migraine aura, persistent, intractable Migraine aura, persistent, with status migrainosus Migraine syndrome No significant past medical history Pneumonia Surgical History Surgical History H/O colposcopy with cervical biopsy H/O LEEP History of gynecologic surgery 03/15/2022 - Hysteroscopic IUD removal History of laparoscopic appendectomy Hx of tonsillectomy No pertinent past surgical history S/P laparoscopic appendectomy 11/22/2019 Family History Family History Mother Breast cancer Thyroid disease Sibling Thyroid disease Social History Social History Social History: Designates her mother, Ca Parker, as her medical decision maker. Smoking status: Current every day smoker Tobacco type: e-cigarettes/vaping Second hand tobacco smoke exposure: No Alcohol intake: current Drinks per week: 2 Alcohol use details: 2 Substance use: current Substance use type: marijuana Do You Feel Safe in your Home?: Yes Lack of Transportation: No Lack of Food: Never True Current Housing: I Have Housing Concerned About Future Housing: No Difficulty Paying Gas/Electric Bills: No Difficulty Paying for Meds: No Currently Unemployed: No Education: Bachelor's Degree Difficulty w/ Childcare or Family Care: No Living arrangements: with family Additional living arrangements comments: Lives with mother Occupation/Education: occupation 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 There is no relevant family history pertinent to the presenting complaint Exam Narrative: GENERAL: Well-appearing, well-nourished, and in no acute distress. HEAD: Normocephalic EYES: PERRLA, conjunctivae clear ENT: Nares clear, turbinates edematous and erythematous, clear discharge. Mucous membranes moist. TM pearly butler with dull light reflex bilaterally; no tragal tenderness. Oropharynx erythematous without lesions. Tonsils not present and without exudate, no drooling, no hoarseness, no trismus, uvula midline.post nasal discharge. NECK: Supple. No lymphadenopathy CHEST: Clear to auscultation, breath sounds equal. No wheezing, rhonchi, rales, or stridor. No respiratory distress, speaks in full sentences.intermittent lower anterior rib area pressure and tightness SAO2 100% on room air HEART: Regular rate and rhythm. No murmur heard. SKIN: Warm, dry, no rash. NEURO: Alert and oriented x3. PSYCH: Normal mood and affect Course Course Emergency Course: Patient is aware of diagnosis, understands and agrees to treatment plan.? Anticipatory guidance given.? Patient agrees to follow-up as directed and is aware of reasons to seek care at the emergency department. Portions of this record may have been created with voice recognition software Level of Care: Express Care Visit Vital Signs Vital signs: Vital Signs Temperature 37.5 C 03/17/24 10:52 Pulse Rate 66 03/17/24 10:52 Respiratory Rate 16 03/17/24 10:52 Blood Pressure 115/83 03/17/24 10:52 Pulse Oximetry 100 03/17/24 10:52 Oxygen Delivery Room Air 03/17/24 10:52 Temperature 37.5 C 03/17/24 10:52 Pulse Rate 66 03/17/24 10:52 Respiratory Rate 16 03/17/24 10:52 Blood Pressure 115/83 03/17/24 10:52 Pulse Oximetry 100 03/17/24 10:52 Oxygen Delivery Room Air 03/17/24 10:52 Reviewed MDM - URI/Sore Throat MDM Narrative Medical decision making narrative: Differential diagnosis considered: Dominguez virus, strep pharyngitis, allergic rhinitis, upper respiratory tract infection, sinusitis, rhinosinusitis, nasopharyngitis. viral pharyngitis, otitis media, otitis externa, pneumonia, bronchitis, viral cough syndrome, viral syndrome, and influenza.? Exam findings show no acute concerns or changes; patient is non-toxic appearing and is in no distress.? Patient is appropriate for outpatient treatment and follow-up. Differential Diagnosis Differential diagnosis: Likely upper respiratory infection, viral infection, pharyngitis and other (acute cough, costochrondritis) Medical Records Attestation: I reviewed the patient's medical records. Lab Data Attestation: I reviewed the patient's lab results. Imaging Data Attestation: I personally reviewed and interpreted this imaging study as follows: My impression: no acute cardiopulmonary disease Radiologist's impression: XRay Report Signed Patient: Mercedez Breen : 1995 MR#: [id number] Age: 28 Acct:[id number] Loc: [id number] ADM Date: 03/17/24Attending Dr: Ordering Physician: Betsey Oconnor APRN Date of Service: 03/17/24 Procedure(s): XR chest 2V Accession Number(s): [id number] cc: Betsey Oconnor APRN; Jodee, America Thompson APRN~ EXAMINATION: XR chest 2V DATE: 03/17/2024 11:31 INDICATION: Chest discomfort. Cough. TECHNIQUE: Frontal and lateral views of the chest were obtained. COMPARISON: Chest 2 views 03/08/2009, CT abdomen and pelvis 04/11/2023 FINDINGS: There is no pneumonia, pleural effusion, or pneumothorax. The heart size is normal. IMPRESSION: 1. No acute cardiopulmonary disease. Reviewed, dictated and finalized at location A. VISION SERVICER Dictated By: Justin Stewart MD 03/17/24 1131 Signed By: <Electronically signed by Justin Stewart MD in OV> Critical Care Time Critical Care Time Critical Care Time: No Discharge Plan Discharge Clinical Impression: Costochondritis, Upper respiratory infection Patient Disposition: Home, Self-Care Condition: Stable Instructions: Antibiotic Form, Costochondritis (ED), Upper Respiratory Infection (ED) Additional Instructions: Increase fluids especially juices and water [id number] cough and cold medicine of your choice for your symptoms Tylenol or ibuprofen for any fever pain Zyrtec Claritin or Quynh Steroids as directed--take with food heat to the face 20-30 minutes 4-6 times a day for pain Salt water gargles, throat lozenges or throat sprays as desired Antibiotic as directed--finished the medication If your symptoms persist, change or worsen significantly before you can contact your personal physician then please, without delay, go to the emergency department for further evaluation. Follow-up with PCP in 7-10 days or sooner if needed monitor for any fevers Avoid vaping Prescriptions: New prednisone 20 mg tablet 20 mg PO BID Qty: 10 0RF Rx Instructions: take with food take in am and early pm azithromycin [Zithromax] 250 mg tablet See Rx Instructions .ROUTE .COMPLEX Qty: 6 0RF Rx Instructions: For 250 mg dose pack: take 500 mg today (day 1), then 250 mg for 4 days (days 2-5) No Action sumatriptan succinate [Imitrex] 100 mg tablet See Rx Instructions PO .COMPLEX Qty: 10 5RF Rx Instructions: take 1 tab at onset of headache; if no relief, may repeat 1 tab after at least 2 hrs; max = 2 tabs/24 hrs PO melatonin 10 mg Tablet 10 mg PO HS PRN (Reason: Sleep) rizatriptan 10 mg tablet See Rx Instructions PO .COMPLEX Qty: 9 1RF Hold Instructions: Patient Condition Rx Instructions: take 1 tab at onset of headache; if no relief may repeat 1 tab after at least 2 hrs; max = 2 tabs/24 hr PO hydrocortisone-pramoxine 1-1 % cream 1 applic RECTAL DAILY Qty: 30 2RF norethindrone (contraceptive) 0.35 mg tablet See Rx Instructions .ROUTE .COMPLEX Qty: 84 0RF Dose Instruction: TAKE 1 TABLET BY MOUTH DAILY Rx Instructions: TAKE 1 TABLET BY MOUTH DAILY Follow-up/Referrals: Jodee,America Thompson, [facility] TILER [Primary Care Provider] - Time of Disposition: 12:08 Quality [place] Coma Scale Eyes: Open Verbal: Oriented and Alert Motor: Follows Commands [place] Coma Total Score: 15
== END 2024-03-17 12:15 | disposition home or self-care (01) ==
PROVIDERS: Emergency Provider Registered Nurse; PCP Nurse Practitioner Family
DX: M94.0 Chondrocostal junction syndrome [Tietze] (principal); J06.9 Acute upper respiratory infection, unspecified; R01.1 Cardiac murmur, unspecified; F17.290 Nicotine dependence, other tobacco product, uncomplicated
CPT/HCPCS: 71046; 99213; G0463

== ENCOUNTER 2024-08-05 09:27 | Emergency (ER) | payer OTHER, SELFPAY ==
[2024-08-05 10:01] VITALS: BP 127/73; PULSE 81; RESP 16; TEMP 37.1; O2SAT 100
--- NOTE | 2024-08-05 10:32 | ED_ITS ---
HPI - Eye Problem General Chief complaint: Eye Problems Stated complaint: EYE REDNESS/DRAINAGE Time Seen by Provider: 08/05/24 10:32 Source: patient, RN notes reviewed and old records reviewed Mode of arrival: ambulatory Limitations: no limitations History of Present Illness HPI Narrative: 29 year old female who presents to [facility] care with complaints of bilateral eye redness with drainage and itching which started yesterday. Patient reports that she has noted bilateral yellowish mucoid drainage from her eyes and she has had crusting from eyes in the mornings when awakening for the past 2 days. Patient reports no upper respiratory symptoms denies any fevers, chills or sweats. MD chief complaint: eye redness Onset (ago): day(s) (day 2 of symptoms) Duration: constant Location: both eyes Eye Symptoms: redness, itching and discharge Severity: moderate Treatments Prior to Arrival: other (warm compresses) Related Data Home Medications ?Medication ?Instructions ?Recorded ?Confirmed ?Last Taken ?Type melatonin 10 mg tablet 10 mg PO HS PRN Sleep 02/24/23 08/05/24 03/13/23 History cetirizine 10 mg capsule (Zyrtec) 10 mg PO DAILY PRN allergy symptoms 07/26/24 08/05/24 Unknown History Allergies Allergy/AdvReac Type Severity Reaction Status Date / Time No Known Allergies Allergy Verified 08/05/24 10:09 Review of Systems Review of Systems: CONSTITUTIONAL: Denies fever, chills, or sweats. EYES: Denies visual changes. Reports redness,, irritation, discharge from bilateral eyes which started yesterday reports itching of eyes, denies any sharp pain ENT: Denies rhinorrhea, congestion, sore throat, or otalgia. CARDIOVASCULAR: Denies chest pain, palpitations, or edema. RESPIRATORY: Denies cough or dyspnea. SKIN: Denies rash or itching. NEUROLOGIC: Denies headache All systems reviewed & are unremarkable except as noted in HPI and below PMFSH Past Medical History Medical History Migraine syndrome Migraine aura, persistent, with status migrainosus Migraine aura, persistent, intractable Abnormal cells of cervix Hives Anxiety Acute hemorrhoid Pneumonia Bronchitis Heart murmur Enlarged adenoids Acute tonsillitis No significant past medical history Surgical History Surgical History H/O LEEP History of gynecologic surgery 03/15/2022 - Hysteroscopic IUD removal H/O colposcopy with cervical biopsy Hx of tonsillectomy S/P laparoscopic appendectomy 11/22/2019 History of laparoscopic appendectomy No pertinent past surgical history Family History Family History Mother Breast cancer Thyroid disease Sibling Thyroid disease Social History Social History Social History: Designates her mother, Ca Parker, as her medical decision maker. Smoking status: Current every day smoker Tobacco type: e-cigarettes/vaping Second hand tobacco smoke exposure: No Alcohol intake: never Substance use: current Substance use type: marijuana Do You Feel Safe in your Home?: Yes Lack of Transportation: No Lack of Food: Never True Current Housing: I Have Housing Concerned About Future Housing: No Difficulty Paying Gas/Electric Bills: No Difficulty Paying for Meds: No Currently Unemployed: No Education: Bachelor's Degree Difficulty w/ Childcare or Family Care: No Living arrangements: with family Additional living arrangements comments: Lives with mother Occupation/Education: occupation 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 There is no relevant family history pertinent to the presenting complaint Exam Narrative: GENERAL: Well-appearing, well-nourished, and in no acute distress. HEAD: Normocephalic, atraumatic. EYES: PERRLA and EOMI. Upper and lower eyelids unremarkable. No periorbital cellulitis noted. Sclera and conjunctivae injected with mucoid discharge bilateral eyes with itching, patient denies any change in vision or any sharp pain to her eyes. ENT: Nares clear, no rhinorrhea or epistaxis. Mucous membranes moist.TM's normal with good light reflex,throat pink with tonsils absent. NECK: Supple. no lymphadenopathy CHEST: Clear to auscultation. No respiratory distress. SAO2 100% on room air HEART: Regular rate and rhythm. No murmur heard. Normal peripheral pulses. SKIN: Warm, dry, no rash. NEURO: No focal deficits. Alert and oriented x3. Course Course Emergency Course: Patient is aware of diagnosis, understands and agrees to treatment plan. Anticipatory guidance given. Patient agrees to follow-up as directed and is aware of reasons to seek care at the emergency department. Portions of this record may have been created with voice recognition software Level of Care: Express Care Visit Vital Signs Vital signs: Vital Signs Temperature 37.1 C 08/05/24 10:01 Pulse Rate 81 08/05/24 10:01 Respiratory Rate 16 08/05/24 10:01 Blood Pressure 127/73 08/05/24 10:01 Pulse Oximetry 100 08/05/24 10:01 Temperature 37.1 C 08/05/24 10:01 Pulse Rate 81 08/05/24 10:01 Respiratory Rate 16 08/05/24 10:01 Blood Pressure 127/73 08/05/24 10:01 Pulse Oximetry 100 08/05/24 10:01 Reviewed MDM - Eye Problem MDM Narrative Medical decision making narrative: Consideration of the following conditions may be warranted for the presenting problem, they are not final diagnoses: Bacterial conjunctivitis, allergic conjunctivitis, viral conjunctivitis, foreign body, blepharitis, chalazion, hordeolum, corneal abrasion.? Exam findings show no acute concerns or changes; patient is non-toxic appearing and is in no distress.? Patient is appropriate for outpatient treatment and follow-up. Differential Diagnosis Differential diagnosis: Likely corneal abrasion, conjunctivitis, subconjunctival hemorrhage and other (mucoid drainage eyes) Medical Records Attestation: I reviewed the patient's medical records. Critical Care Time Critical Care Time Critical Care Time: No Discharge Plan Discharge Clinical Impression: Conjunctivitis Qualifiers: Conjunctivitis type: acute Acute conjunctivitis type: unspecified Laterality: bilateral Qualified Code(s): H10.33 - Unspecified acute conjunctivitis, bilateral Patient Disposition: Home Condition: Stable Instructions: Antibiotic Form, Conjunctivitis (ED) Additional Instructions: Cold compresses to the eyes for comfort May need warm compresses to remove debris in the morning When cleaning the eyes used a washcloth in one direction then change washcloths or use a cotton ball in one direction and then his cotton balls Eyedrops as directed--may be more soothing if left in the refrigerator Do not share medicine--do not touch the eye with the medicine Tylenol or ibuprofen for pain Avoid screen time--television, computer, tablet or phone. Also no reading or driving Follow-up with PCP or press tender incendiary grenade as directed if no improvement 48 hours If your symptoms persist, change or worsen significantly before you can contact your personal physician then please, without delay, go to the emergency department for further evaluation. Follow-up with PCP in 7-10 days or sooner if needed use good hand washing Patient Language: Persian Prescriptions: New ofloxacin 0.3 % drops See Rx Instructions .ROUTE .COMPLEX Qty: 10 0RF Rx Instructions: put 1-2 drps into affected eye(s) every 2-4 h x 2 days, then 1-2 drps 4 times/day days 3-7 No Action Zyrtec 10 mg capsule 10 mg PO DAILY PRN (Reason: allergy symptoms) melatonin 10 mg Tablet 10 mg PO HS PRN (Reason: Sleep) hydrocortisone-pramoxine 1-1 % cream 1 applic RECTAL DAILY Qty: 30 2RF Follow-up/Referrals: Jodee,America Thompson, WOMEN'S MINISTRY DIRECTOR [Primary Care Provider] - Time of Disposition: 10:43 Quality [place] Coma Scale Eyes: Open Verbal: Oriented and Alert Motor: Follows Commands Catina Coma Total Score: 15
== END 2024-08-05 11:02 | disposition home or self-care (01) ==
PROVIDERS: Emergency Provider Registered Nurse; PCP Nurse Practitioner Family
DX: H10.33 Unspecified acute conjunctivitis, bilateral (principal); F17.290 Nicotine dependence, other tobacco product, uncomplicated; F12.90 Cannabis use, unspecified, uncomplicated; R01.1 Cardiac murmur, unspecified
CPT/HCPCS: 99213; G0463

== ENCOUNTER 2024-10-16 11:31 | Outpatient (CLI) | payer OTHER, SELFPAY ==
--- NOTE | ~2024-10-16 | XR_ITS ---
XR cervical spine min 6V Ordering provider: Drew Ellison, [place] History: . neck pain with headaches . Comparison: None. FINDINGS: VERTEBRAL BODIES: Normal height and alignment. No visible fracture or subluxation. The dens is intact . DISK SPACES: Well maintained. PARASPINOUS SOFT TISSUES: No prevertebral soft tissue swelling. IMPRESSION: No acute osseous abnormality cervical spine. Reviewed, dictated and finalized at location A.
== END 2024-10-16 11:32 | disposition home or self-care (01) ==
PROVIDERS: PCP Chiropractor; Visit Provider Chiropractor
DX: M54.2 Cervicalgia (principal); R51.9 Headache, unspecified
CPT/HCPCS: 72052

== ENCOUNTER 2024-10-27 15:51 | Outpatient (CLI) | payer OTHER, SELFPAY ==
[2024-10-27 18:08] LABS: Basophils Absolute Auto 0.1 K/mm3 (0.0-0.1); Eosinophils Percent Auto 0.3 % (0-4.4); Hematocrit 39.1 % (37.0-47.0); Immature Granulocyte Absolute 0.01 K/mm3 (0.00-0.031); Immature Granulocyte Percent A 0.2 % (0-0.5); Lymphocytes Absolute Auto 1.88 K/mm3 (0.9-3.2); Lymphocytes Percent Auto 31.4 % (18.3-44.2); Mean Corpuscular HGB Conc 33.2 g/dl (32-36); Mean Corpuscular Hemoglobin 31.7 pg (26-34); Mean Corpuscular Volume 95.4 fl (80-100); Mean Platelet Volume 12.4 fl (7.4-10.4); Monocytes Absolute Auto 0.5 K/mm3 (0.1-0.6); Monocytes Percent Auto 8.5 % (2.6-8.5); Neutrophils Absolute Auto 3.5 K/mm3 (1.3-6.7); Neutrophils Percent Auto 58.6 % (45.5-73.1); Platelet Count Result 174 k/mm3 (150-375); Red Cell Distribution Width 11.9 % (11.5-14.5)
[2024-10-27 18:23] LABS: Alanine Aminotransferase 12 U/L (6-35); Albumin Level 4.7 g/dL (3.5-5.1); Alkaline Phosphatase 37 U/L (38-126); Anion Gap 9 mmol/L (4-12); Aspartate Amino Transferase 25 U/L (14-36); Bilirubin,Total 0.5 mg/dL (0.2-1.3); Blood Urea Nitrogen 9 mg/dL (7-17); Calcium 9.1 mg/dL (8.4-10.2); Carbon Dioxide 26 mmol/L (22-30); Chloride 105 mmol/L (98-107); Estimated Glomerular Filt Rate > 60; Glucose 85 mg/dL (65-110); Magnesium 2.1 mg/dL (1.6-2.3); Potassium 4.4 mmol/L (3.4-5.0); Sodium 140 mmol/L (137-145); Total Protein 7.6 g/dL (6.3-8.2)
[2024-10-27 18:41] LABS: Free T3 3.53 pg/mL (2.32-6.09); Free T4 Free Thyroxine 0.96 ng/dL (0.78-2.19); Vitamin D 25 Hydroxy 38.2 ng/mL
[2024-10-27 18:54] LABS: Thyroid Stimulating Hormone 0.697 uIU/mL (0.465-4.680)
[2024-10-27 19:13] LABS: Vitamin B12 < 159.0 pg/mL (239-931)
[2024-10-30 11:43] LABS: Thyroid Peroxidase Antibodies 1 IU/mL (<9)
== END 2024-10-27 15:52 | disposition home or self-care (01) ==
LOC: ANHGOSHLAB 15:52
PROVIDERS: PCP Nurse Practitioner Family; Visit Provider Nurse Practitioner Family
DX: F41.9 Anxiety disorder, unspecified (principal); G43.519 Persistent migraine aura without cerebral infarction, intractable, without status migrainosus; R53.83 Other fatigue; E53.9 Vitamin B deficiency, unspecified; E55.9 Vitamin D deficiency, unspecified; Z83.49 Family history of other endocrine, nutritional and metabolic diseases
CPT/HCPCS: 36415; 80053; 82306; 82607; 83735; 84439; 84443; 84481; 85025; 86376

== ENCOUNTER 2024-12-09 10:59 | Outpatient (CLI) | payer OTHER, SELFPAY ==
--- OUTSIDE RECORDS SUMMARY | 2024-12-09 11:02 | XMS_ITS | Clinical Summary ---
Author Organization [facility] Address [address] [place] [id number] Care Team Providers Care Podiatrist Name Role Phone No, Physician Primary Care Provider [phone] Allergies No known active allergies Medications predniSONE (DELTASONE) 50 mg tablet Take 1 tablet (50 mg) by mouth daily 3 Active busPIRone (BUSPAR) 10 mg tablet Take 0.5 tablets (5 mg total) by mouth 2 (two) times a day 3 Active triamcinolone (KENALOG) 0.5 % ointment Apply 15 Applications topically daily 3 Active Active Problems Problem Noted Date Diagnosed Date Migraine headache 03/30/2011 Surgical History Surgery Date Site/Laterality Comments APPENDECTOMY N/A TONSILLECTOMY AND ADENOIDECTOMY Bilateral WISDOM TOOTH EXTRACTION Bilateral Family History Medical History Relation Name Comments Breast cancer Mother Relation Name Status Comments Mother Social History Tobacco Use Types Packs/Day Years Used Date Smoking Tobacco: Never Smokeless Tobacco: Never Tobacco Cessation:Counseling Given: Not Answered AUDIT-C Answer Date Recorded Q1: How often do you have a drink containing alc ohol? 2-3 times a week 01/12/2023 Q2: How many drinks containi ng alcohol do you have on a typical day when you are drinking? 1 or 2 01/12/2023 Q3: How often do you have si x or more drinks on one occasion? 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 Gender Identity Not on file Sexual Orientation Not on file Obstetrics History Last Filed Vital Signs Vital Sign Reading Time Taken Comments Blood Pressure 128/78 01/12/2023 2:15 PM CDT Pulse 95 01/12/2023 2:15 PM CDT Temperature - - Respiratory Rate - - Oxygen Saturation 99% 01/12/2023 2:15 PM CDT Inhaled Oxygen Concentration - - Weight 69.4 kg (153 lb) 01/12/2023 2:15 PM CDT Height 162.6 cm (5' 4) 01/12/2023 2:15 PM CDT Body Mass Index 26.26 01/12/2023 2:15 PM CDT Plan of Treatment Health Maintenance Due Date Last Done Comments Cervical Cancer Screening 1997 Depression Screening 1997 Hepatitis C Screening 1997 Varicella Vaccines (1 of 2 - 13+ 2-dose series) 2010 Regular Well Visit/Exam 18-64 2015 DTaP/Tdap/Td Vaccine (7 - Td or Tdap) 12/20/2018 12/20/2008, 08/04/2002, 05/01/1999, Additional history exists Influenza Vaccine (#1) 2025 Hepatitis B Screening Completed 04/03/1998 , 1997, 1997 HPV Vaccines Completed 10/13/2012, 12/18/2011 Pneumococcal vaccine <65 Aged Out No longer eligible based on patient's age to complete this topic Insurance [employer] Care Teams Podiatrist Relationship Specialty Start Date End Date No, Physician PCP - General 11/18/22
--- OUTSIDE RECORDS SUMMARY | 2024-12-09 11:02 | XMS_ITS | Clinical Summary ---
Author Organization [facility] Address [address] [place] [id number] Care Team Providers Care Vegetable Farmer Name Role Phone Unavailable Primary Care Provider Unavailabl e Social History Tobacco Use Types Packs/Day Years Used Date Smoking Tobacco: Never Assessed Comments Unknown Sex and Gender Information Value Date Recorded Sex Assigned at Not on file Legal Sex Female 7:42 PM CDT Gender Identity Not on file Sexual Orientation Not on file Plan of Treatment Health Maintenance Due Date Last Done Comments Cervical Cancer Screening Pa p Smear (Age 21 to 29) Every 3 Years 1997 Cervical Cancer Screening 1997 Annual Physical 2000 Hepatitis C 2015 DTaP, Tdap and Td Vaccines ( 1 - Tdap) 2016 Hepatitis B Vaccines (1 of 3 - 19+ 3-dose series) 2016 COVID-19 Vaccine (2023-2 5 season) 2024 HPV Vaccines (1 - 3-dose SCD M series) 2024 Meningococcal B Vaccine Aged Out No l onger eligible based on patient's age to complete this topic Meningococcal Vaccine Aged Out No micah geraldine eligible based on patient's age to complete this topic Pneumococcal Vaccine: Pediat rics (0 to 5 Years) and At-Risk Patients (6 to 49 Years) Aged Out No longer eligible b ased on patient's age to complete this topic RSV Immunizations Under 20 Months Aged Out No longer eligible based on patient's age to complete this topic
[2024-12-09 11:13] LABS: Hematocrit 37.1 % (37.0-47.0); Hemoglobin 12.5 g/dL (12.0-15.0); Immature Granulocyte Percent A 0.0 % (0-0.5); Lymphocytes Absolute Auto 1.63 K/mm3 (0.9-3.2); Mean Corpuscular HGB Conc 33.7 g/dl (32-36); Mean Corpuscular Hemoglobin 31.6 pg (26-34); Mean Corpuscular Volume 93.7 fl (80-100); Nucleated Red Blood Cells Absolute Auto 0.000 K/mm3 (0.0-0.012); Nucleated Red Blood Cells Perc 0.0 % (0.0-0.2); Platelet Count Result 132 k/mm3 (150-375); Red Blood Count 3.96 M/mm3 (4.2-5.4); White Blood Count 4.7 K/mm3 (4.5-10.0)
[2024-12-09 12:26] LABS: Vitamin B12 808.0 pg/mL (239-931)
== END 2024-12-09 11:00 | disposition home or self-care (01) ==
LOC: ANHLAB 11:00
PROVIDERS: PCP Nurse Practitioner Family; Visit Provider Nurse Practitioner Family
DX: E53.8 Deficiency of other specified B group vitamins (principal); R53.83 Other fatigue
CPT/HCPCS: 36415; 82607; 85025

== ENCOUNTER 2025-03-20 09:37 | Outpatient (CLI) | payer OTHER, SELFPAY ==
--- NOTE | 2025-04-03 11:50 | WPDHOLTEREM ---
Holter/Event Monitor Holter/Event Monitor Date of procedure: 03/20/25 Holter/Event Procedure: 3-7 Day Holter Monitor Indications: Palpitations Conclusion: 1. 3 days holter monitor on 03/20/25. 2. Underlying rhythm is sinus rhythm. HR range 60-162 bpm; average HR 86 bpm. HR at 162 bpm was on 03/23/25 at 8:37 pm. 3. No premature supraventricular complexes. No supraventricular tachycardia. 4. There are rare premature ventricular complexes. No ventricular tachycardia. 5. No significant pauses greater than 3 seconds. 6. Patient reports 10 episodes of symptoms of irregular beats, hard beats which demonstrate sinus rhythm, HR range 73-87 bpm with 9 episodes with PVC's.
== END 2025-03-20 09:38 | disposition home or self-care (01) ==
PROVIDERS: PCP Family Medicine; Visit Provider Family Medicine
DX: R00.2 Palpitations (principal)
CPT/HCPCS: 93242

== ENCOUNTER 2025-03-24 09:50 | Outpatient (CLI) | payer OTHER, SELFPAY ==
[2025-03-24 10:08] LABS: Hematocrit 37.0 % (37.0-47.0); Hemoglobin 12.7 g/dL (12.0-15.0); Immature Granulocyte Percent A 0.2 % (0-0.5); Lymphocytes Absolute Auto 1.48 K/mm3 (0.9-3.2); Mean Corpuscular HGB Conc 34.3 g/dl (32-36); Mean Corpuscular Hemoglobin 31.7 pg (26-34); Mean Corpuscular Volume 92.3 fl (80-100); Nucleated Red Blood Cells Absolute Auto 0.000 K/mm3 (0.0-0.012); Nucleated Red Blood Cells Perc 0.0 % (0.0-0.2); Platelet Count Result 150 k/mm3 (150-375); Red Blood Count 4.01 M/mm3 (4.2-5.4); White Blood Count 4.5 K/mm3 (4.5-10.0)
[2025-03-24 10:36] LABS: Alanine Aminotransferase 22 U/L (6-35); Albumin Level 4.2 g/dL (3.5-5.1); Alkaline Phosphatase 40 U/L (38-126); Anion Gap 7 mmol/L (4-12); Aspartate Amino Transferase 24 U/L (14-36); Bilirubin,Total 0.7 mg/dL (0.2-1.3); Blood Urea Nitrogen 10 mg/dL (7-17); Calcium 8.7 mg/dL (8.4-10.2); Carbon Dioxide 25 mmol/L (22-30); Chloride 105 mmol/L (98-107); Cholesterol 152 mg/dL (0-200); Estimated Glomerular Filt Rate > 60; Glucose 102 mg/dL (65-110); HDL Direct 55 mg/dL; Potassium 4.0 mmol/L (3.4-5.0); Sodium 137 mmol/L (137-145); Total Protein 7.0 g/dL (6.3-8.2); Triglycerides 56 mg/dL (<150)
[2025-03-24 11:11] LABS: Ferritin 15.20 ng/mL (6.24-137); Thyroid Stimulating Hormone 1.160 uIU/mL (0.465-4.680)
[2025-03-24 11:30] LABS: Vitamin B12 421.0 pg/mL (239-931)
== END 2025-03-24 09:51 | disposition home or self-care (01) ==
LOC: ANHLAB 09:51
PROVIDERS: PCP Family Medicine; Visit Provider Family Medicine
DX: R00.2 Palpitations (principal)
CPT/HCPCS: 36415; 80053; 80061; 82607; 82728; 84443; 85025